=== PATIENT | male | born 1960 | race Caucasian/White ===

== ENCOUNTER 2018-02-15 13:42 | Inpatient (IN) | payer OTHER ==
[2018-02-15 16:04] VITALS: BMI 33.3
--- NOTE | 2018-02-15 19:42 | HP ---
CIWA Score - CIWA Score Nausea/Vomitin Muscle Tremors: 3 Anxiety: 3 Agitation: 3 Paroxysmal Sweats: 3 Orientation: 0-Oriented Tacttile Disturbances: 0-None Auditory Disturbances: 0-None Visual Disturbances: 0-None Headache: 0-None Present CIWA-Ar Total Score: 15 Admission ROS S - HPI Chief Complaint: "I need to stop drinking because it's too much" Allergies/Adverse Reactions: Allergies Allergy/AdvReac Type Severity Reaction Status Date / Time No Known Allergies Allergy Verified 02/15/18 18:34 History of Present Illness: Pt is a 57 y/o man with a 30 yr history of alcohol addiction presents here for alcohol detox. This is pt's first visit here but states he had detox once prior 3 yrs ago in [place]. Hx: DM, HTN, High cholesterol, gastritis, previous back surgery Psych hx: Anxiety, Depression Denies past nor present SI Exam Limitations: No Limitations - Ebola screening Have you traveled outside of the country in the last 21 days: No Have you had contact with anyone from an Ebola affected area: No Have you been sick,other than usual withdrawal symptoms: No Do you have a fever: No - Review of Systems Constitutional: Night Sweats, Changes in sleep EENT: reports: Recent change in vision (wears galsses), Tinnitus (sometimes) Respiratory: reports: No Symptoms reported GI: reports: Diarrhea, Nausea, Vomiting : reports: No Symptoms Reported Musculoskeletal: reports: Back Pain, Neck Pain Integumentary: reports: No Symptoms Reported Neuro: reports: Headache, Numbness, Paresthesia Endocrine: reports: No Symptoms Reported Hematology: reports: No Symptoms Reported Psychiatric: reports: Mood/Affect Appropiate, Orientated x3, Anxious Other Systems: Reviewed and Negative Patient History - Patient Medical History Hx Anemia: Yes Hx Asthma: No Hx Chronic Obstructive Pulmonary Disease (COPD): No Hx Cancer: No Hx Cardiac Disorders: No Hx Congestive Heart Failure: No Hx Hypertension: Yes (On meds - lisinopril) Hx Hypercholesterolemia: Yes (On meds) Hx Pacemaker: No HX Cerebrovascular Accident: No Hx Seizures: No Hx Diabetes: Yes (ON insulin, metformin, glypizide, januvia) Hx Gastrointestinal Disorders: Yes (Gastritis - on omeprazole) Hx Liver Disease: No Hx Genitourinary Disorders: No Hx Sexually Transmitted Disorders: No Hx Renal Disease (ESRD): No Hx Thyroid Disease: No Hx Human Immunodeficiency Virus (HIV): No (last tested 2 yrs ago, declines test.) Hx Hepatitis C: No Hx Depression: Yes (Not on meds) Hx Suicide Attempt: No Hx Bipolar Disorder: No Hx Schizophrenia: No - Patient Surgical History Past Surgical History: Yes Hx Neurologic Surgery: No Hx Cataract Extraction: No Hx Cardiac Surgery: No Hx Lung Surgery: No Hx Breast Surgery: No Hx Breast Biopsy: No Hx Abdominal Surgery: No Hx Appendectomy: No Hx Cholecystectomy: No Hx Genitourinary Surgery: No Hx Section: No Hx Orthopedic Surgery: Yes (SPINE SURGERY 2010) Hx Hysterectomy: No Anesthesia Reaction: No - PPD History Previous Implant?: No Documented Results: Negative w/o proof Implanted On Prior R Admission?: No PPD to be Administered?: No - Reproductive History Patient is a Female of Child Bearing Age (11 -55 yrs old): No - Smoking Cessation Smoking history: Never smoked Have you smoked in the past 12 months: No Initiated information on smoking cessation: Yes 'Breaking Loose' booklet given: 02/15/18 - Substance & Tx. History Hx Alcohol Use: Yes Hx Substance Use: Yes Substance Use Type: Alcohol Hx Substance Use Treatment: No - Substances Abused Alcohol Route: Oral Frequency: Daily Amount used: 1- 2 PINT VODKA + 8/16OZ BEER. Age of first use: 13 Date of Last Use: 02/15/18 Family Disease History - Family Disease History Family Disease History: Diabetes: Mother (), Heart Disease: Mother, Other: Father ( - liver cirrhosis) Admission Physical Exam S - Vital Signs Vital Signs: Vital Signs - 24 hr 02/15/18 16:02 Temperature 97.2 F L Pulse Rate 106 H Respiratory 18 Rate Blood Pressure 158/90 - Physical General Appearance: Yes: Mild Distress, Irritable, Anxious HEENTM: Yes: Within Normal Limits Respiratory: Yes: Within Normal Limits, Lungs Clear, No Respiratory Distress, No Accessory Muscle Use Neck: Yes: No masses,lesions,Nodules, Other (slight tenderness to back) Breast: Yes: Breast Exam Deferred Cardiology: Yes: Within Normal Limits Abdominal: Yes: Within Normal Limits, Non Tender, Soft Genitourinary: Yes: Within Normal Limits Back: Yes: Normal Inspection Musculoskeletal: Yes: full range of Motion, Gait Steady Extremities: Yes: Within Normal Limits, Normal Capillary Refill, Normal Inspection Neurological: Yes: Fully Oriented, Alert, Motor Strength 5/5, Normal Mood/Affect Integumentary: Yes: Within Normal Limits, Normal Color Lymphatic: Yes: Within Normal Limits - Diagnostic (1) Uncomplicated alcohol dependence Current Visit: Yes Status: Acute (2) HTN (hypertension) Current Visit: Yes Status: Chronic (3) Gastritis Current Visit: Yes Status: Chronic (4) DM type 2 (diabetes mellitus, type 2) Current Visit: Yes Status: Chronic (5) High cholesterol Current Visit: Yes Status: Chronic (6) Insomnia Current Visit: Yes Status: Chronic (7) Anxiety and depression Current Visit: Yes Status: Acute BHS Breath Alcohol Content Breath Alcohol Content: 0.039 Urine Drug Screen - Results Drug Screen Negative: Yes
[2018-02-15] MEDS ORDERED: chlordiazePOXIDE HCL 25 MG CAPSULE PO PRN (20:07)
[2018-02-15] MEDS ORDERED: guaiFENesin/D-METHORPHAN HB 10 ML UNIT-DOSE CUPS PO PRN (20:07)
[2018-02-15] MEDS ORDERED: MAG HYDROX/AL HYDROX/SIMETH 30 ML UNIT-DOSE CUP PO PRN (20:07)
[2018-02-15] MEDS ORDERED: MENTHOL/PHENOL 1 EACH UD MM PRN (20:07)
[2018-02-15] MEDS ORDERED: MAGNESIUM HYDROX 2400MG/30ML ORAL SUSPENSION 30 ML CUP PO PRN (20:07)
[2018-02-15] MEDS ORDERED: IBUPROFEN 400 MG TABLET (FP) PO PRN (20:07)
[2018-02-15] MEDS ORDERED: hydrOXYzine PAMOATE 50 MG CAPSULE (FP) PO PRN (20:07)
[2018-02-15] MEDS ORDERED: ACETAMINOPHEN 325 MG TABLET (FP) PO PRN (20:07)
[2018-02-15] MEDS ORDERED: MAGNESIUM CITRATE 300 ML BOTTLE PO PRN (20:07)
[2018-02-15] MEDS ORDERED: LOPERAMIDE HCL 2 MG CAPSULE PO PRN (20:07)
[2018-02-15] MEDS ORDERED: P-EPHED 60MG/TRIPROLIDI 2.5MG TABLET PO PRN (20:07)
[2018-02-15] MEDS: INSULIN (LEVEMIR) 100 UNITS/ML UNITS SQ SCH (21:34)
[2018-02-15] MEDS: ATORVASTATIN CA 40 MG TABLET (FP) PO SCH (21:35)
[2018-02-15] MEDS ORDERED: INSULIN (NOVOLOG) ASPART 100 UNITS/ML 10ML VIAL ONE (21:39)
[2018-02-15] MEDS: INSULIN SLIDING SCALE (NOVOLOG) 1 VIAL SQ SCH (21:41)
[2018-02-15] MEDS ORDERED: INSULIN SLIDING SCALE (NOVOLOG) 1 VIAL SQ SCH (22:00)
[2018-02-15] MEDS ORDERED: metFORMIN HCL 500 MG TABLET (FP) PO SCH (22:00)
[2018-02-15] MEDS ORDERED: INSULIN GLARGINE HUM REC ANLOG 45 UNIT SQ SCH (22:00)
[2018-02-15] MEDS ORDERED: MELATONIN 5 MG TABLETS PO PRN (22:00)
[2018-02-15] MEDS: THIAMINE HCL 100 MG TABLET (FP) PO SCH (23:17)
[2018-02-15] MEDS: chlordiazePOXIDE HCL 25 MG CAPSULE PO SCH (23:17)
[2018-02-16] MEDS: chlordiazePOXIDE HCL 25 MG CAPSULE PO SCH ×4 (05:22→22:29)
[2018-02-16] MEDS ORDERED: INSULIN (NOVOLOG) ASPART 100 UNITS/ML 10ML VIAL ONE ×3 (07:37→22:29)
[2018-02-16] MEDS: glipiZIDE 5 MG TABLET (FP) PO SCH ×2 (07:42→16:56)
[2018-02-16] MEDS: INSULIN SLIDING SCALE (NOVOLOG) 1 VIAL SQ SCH ×4 (07:42→22:29)
[2018-02-16] MEDS: metFORMIN HCL 500 MG TABLET (FP) PO SCH ×2 (07:42→16:56)
[2018-02-16] MEDS ORDERED: PATIENT'S OWN MEDICATION (NON-FORMULARY) (Omeprazole [Omeprazole] 20 MG) PO SCH (10:00)
[2018-02-16] MEDS: PRENATAL VITAMINS W/ FOLIC ACID TABLET (FP) PO SCH (10:21)
[2018-02-16] MEDS: ASPIRIN 81 MG CHEWABLE TABLETS PO SCH (10:21)
[2018-02-16] MEDS: PANTOPRAZOLE 20 MG TABLET (FP) PO SCH (10:22)
[2018-02-16] MEDS: LISINOPRIL 20 MG TABLET (FP) PO SCH (10:22)
[2018-02-16 10:42] LABS: HEMOGLOBIN 12.1 GM/dL (11.7-16.9); MCH 28.5 pg (25.7-33.7); MCHC 32.7 g/dl (32.0-35.9); MEAN CELL VOLUME 87.3 fl (80-96); MEAN PLT VOLUME 8.5 fl (7.5-11.1); PLATELET COUNT 264 K/MM3 (134-434); RBC 4.24 M/mm3 (4.00-5.60); RDW 14.5 % (11.9-15.9); WHITE BLOOD COUNT 7.4 K/mm3 (4.0-10.0)
[2018-02-16 10:43] LABS: URINE APPEARANCE CLEAR; URINE BILIRUBIN NEGATIVE (<2.0 mg/dL); URINE COLOR STRAW; URINE GLUCOSE (UA) 3+ (NEGATIVE); URINE KETONE NEGATIVE (NEGATIVE); URINE LEUK ESTERASE NEGATIVE (NEGATIVE); URINE NITRITE NEGATIVE (NEGATIVE); URINE PROTEIN NEGATIVE (NEGATIVE); URINE UROBILINOGEN NEGATIVE mg/dL (0.2-1.0)
--- NOTE | 2018-02-16 10:43 | CONSULT ---
[facility] Psychiatric Consult - Data Date of interview: 02/16/18 Admission source: [facility] Identifying data: Mr Khan is a 57 years old single male, unemployed with no source of income homeless seeking detox treatment for alcohol Substance Abuse History: Reports history of alcohol use. Refer to addiction counselor's summary for further information Medical History: Significant for hypertension dyslipidemia, type 2 diabetes mellitus, gastritis, anemia and history of neurosurgery of spine 2010. Psychiatric History: Reports since his spine surgery in 2010, he started feeling depressed and anxious. He initially saw a psychiatrist in [place] and he was prescribed Alprazolam and Valium. Recently on February 03, 2018, he completed a proram at [facility] after 20 months. There he saw a psychiatrist and was tried on different medications including Fluoxetine, Trazadone, Seroquel, Vistaril etc. Claims none of them worked except Alprazlam and Valium he was prescribed by the psychiatrist in [place]. Denies previous psychiatric hospitalization or suicidal attempt. At present, reports feeling depressed and sleeping poorly Physical/Sexual Abuse/Trauma History: Denies history of emotional, physical or sexual abuse as well as DV relationship. No service Additional Comment: Reports history of one previous arrest on charges of drinking in public years ago Mental Status Exam - Mental Status Exam Alert and Oriented to: Time, Place, Person Cognitive Function: Fair Patient Appearance: Well Groomed Mood: Depressed Affect: Appropriate Patient Behavior: Cooperative Speech Pattern: Clear Voice Loudness: Normal Thought Process: Intact, Goal Oriented Thought Disorder: Not Present Hallucinations: Denies Homicidal Ideation: Denies Insight/Judgement: Fair Sleep: Poorly Appetite: Good Muscle strength/Tone: Normal Gait/Station: Normal Psychiatric Findings - Problem List ([place] 1, 2,3) (1) Alcohol-induced mood disorder Current Visit: Yes Status: Acute (2) Alcohol-induced sleep disorder Current Visit: Yes Status: Acute (3) Uncomplicated alcohol dependence Current Visit: Yes Status: Acute (4) DM type 2 (diabetes mellitus, type 2) Current Visit: Yes Status: Chronic (5) Gastritis Current Visit: Yes Status: Chronic (6) HTN (hypertension) Current Visit: Yes Status: Chronic (7) High cholesterol Current Visit: Yes Status: Chronic - Initial Treatment Plan Initial Treatment Plan: 1) Start Ambien 10 mg po HS prn for insomnia. 2) Continue inpatient detoxification
[2018-02-16 10:54] LABS: EPI CELLS RARE /HPF (FEW); URINE MUCUS RARE
[2018-02-16 11:29] LABS: ALBUMIN 3.1 g/dl (3.4-5.0); ALK PHOS 187 U/L (45-117); ANION GAP 9 MMOL/L (8-16); BILIRUBIN,TOTAL 0.3 mg/dL (0.2-1); BLOOD UREA NITROGEN 8 mg/dL (7-18); CALCIUM 8.7 mg/dL (8.5-10.1); CHLORIDE 99 mmol/L (98-107); CO2 26 mmol/L (21-32); CREATININE 0.8 mg/dL (0.55-1.3); GLUCOSE,RANDOM 165 mg/dL (74-106); POTASSIUM 4.1 mmol/L (3.5-5.1); SGOT/AST 28 U/L (15-37); SGPT/ALT 42 U/L (13-61); SODIUM 134 mmol/L (136-145); TOT PROT 7.1 g/dl (6.4-8.2)
--- NOTE | 2018-02-16 13:12 | PN ---
S CIWA - CIWA Score Nausea/Vomitin-Mild Nausea/No Vomiting Muscle Tremors: 3 Anxiety: 3 Agitation: 3 Paroxysmal Sweats: 1-Minimal Palms Moist Orientation: 1-Uncertain about Date (to date) Tacttile Disturbances: 0-None Auditory Disturbances: 0-None Visual Disturbances: 0-None Headache: 0-None Present CIWA-Ar Total Score: 12 BHS Progress Note (SOAP) Subjective: sweat tremor restlessness low energy Objective: 02/16/18 13:13 Vital Signs Temperature 97.8 F 02/16/18 10:32 Pulse Rate 100 H 02/16/18 10:32 Respiratory Rate 20 02/16/18 10:32 Blood Pressure 132/79 02/16/18 10:32 O2 Sat by Pulse Oximetry (%) Laboratory Last Values WBC 7.4 K/mm3 (4.0-10.0) 02/16/18 07:40 RBC 4.24 M/mm3 (4.00-5.60) 02/16/18 07:40 Hgb 12.1 GM/dL (11.7-16.9) 02/16/18 07:40 Hct 37.0 % (35.4-49) 02/16/18 07:40 MCV 87.3 fl (80-96) 02/16/18 07:40 MCH 28.5 pg (25.7-33.7) 02/16/18 07:40 MCHC 32.7 g/dl (32.0-35.9) 02/16/18 07:40 RDW 14.5 % (11.9-15.9) 02/16/18 07:40 Plt Count 264 K/MM3 (134-434) 02/16/18 07:40 MPV 8.5 fl (7.5-11.1) 02/16/18 07:40 Sodium 134 mmol/L (136-145) L 02/16/18 07:40 Potassium 4.1 mmol/L (3.5-5.1) 02/16/18 07:40 Chloride 99 mmol/L (98-107) 02/16/18 07:40 Carbon Dioxide 26 mmol/L (21-32) 02/16/18 07:40 Anion Gap 9 MMOL/L (8-16) 02/16/18 07:40 BUN 8 mg/dL (7-18) 02/16/18 07:40 Creatinine 0.8 mg/dL (0.55-1.3) 02/16/18 07:40 Creat Clearance w eGFR > 60 (>60) 02/16/18 07:40 POC Glucometer 226 UNITS (80-120) 02/16/18 11:26 Random Glucose 165 mg/dL (74-106) H 02/16/18 07:40 Calcium 8.7 mg/dL (8.5-10.1) 02/16/18 07:40 Total Bilirubin 0.3 mg/dL (0.2-1) 02/16/18 07:40 AST 28 U/L (15-37) 02/16/18 07:40 ALT 42 U/L (13-61) 02/16/18 07:40 Alkaline Phosphatase 187 U/L (45-117) H 02/16/18 07:40 Total Protein 7.1 g/dl (6.4-8.2) 02/16/18 07:40 Albumin 3.1 g/dl (3.4-5.0) L 02/16/18 07:40 Urine Color Straw 02/16/18 08:40 Urine Appearance Clear 02/16/18 08:40 Urine pH 6.0 (5.0-8.0) 02/16/18 08:40 Ur Specific [place] 1.012 (1.010-1.035) 02/16/18 08:40 Urine Protein Negative (NEGATIVE) 02/16/18 08:40 Urine Glucose (UA) 3+ (NEGATIVE) H 02/16/18 08:40 Urine Ketones Negative (NEGATIVE) 02/16/18 08:40 Urine Blood 1+ (NEGATIVE) H 02/16/18 08:40 Urine Nitrite Negative (NEGATIVE) 02/16/18 08:40 Urine Bilirubin Negative (<2.0 mg/dL) 02/16/18 08:40 Urine Urobilinogen Negative mg/dL (0.2-1.0) 02/16/18 08:40 Ur Leukocyte Esterase Negative (NEGATIVE) 02/16/18 08:40 Urine WBC (Auto) 1 /hpf (3-5) 02/16/18 08:40 Urine RBC (Auto) 1 /hpf (0-3) 02/16/18 08:40 Ur Epithelial Cells Rare /HPF (FEW) 02/16/18 08:40 Urine Mucus Rare 02/16/18 08:40 RPR Titer Nonreactive (NONREACTIVE) 02/16/18 07:40 lab noted Assessment: 02/16/18 13:14 withdrawal sx Plan: continue detox
[2018-02-16] MEDS: ATORVASTATIN CA 40 MG TABLET (FP) PO SCH (22:29)
[2018-02-16] MEDS: INSULIN (LEVEMIR) 100 UNITS/ML UNITS SQ SCH (22:29)
[2018-02-16] MEDS: ZOLPIDEM TARTRATE 10 MG TABLET (PARK CARE ONLY) PO PRN (22:33)
[2018-02-16] MEDS: THIAMINE HCL 100 MG TABLET (FP) PO SCH (23:25)
[2018-02-17] MEDS: glipiZIDE 5 MG TABLET (FP) PO SCH ×2 (06:24→17:30)
[2018-02-17] MEDS: chlordiazePOXIDE HCL 25 MG CAPSULE PO SCH ×3 (06:24→17:30)
[2018-02-17] MEDS: metFORMIN HCL 500 MG TABLET (FP) PO SCH ×2 (06:24→17:30)
[2018-02-17] MEDS ORDERED: INSULIN (NOVOLOG) ASPART 100 UNITS/ML 10ML VIAL ONE ×4 (06:30→22:22)
[2018-02-17] MEDS: INSULIN SLIDING SCALE (NOVOLOG) 1 VIAL SQ SCH ×5 (08:19→22:24)
[2018-02-17] MEDS: LISINOPRIL 20 MG TABLET (FP) PO SCH (10:45)
[2018-02-17] MEDS: ASPIRIN 81 MG CHEWABLE TABLETS PO SCH (10:45)
[2018-02-17] MEDS: PRENATAL VITAMINS W/ FOLIC ACID TABLET (FP) PO SCH (10:45)
[2018-02-17] MEDS: PANTOPRAZOLE 20 MG TABLET (FP) PO SCH (10:45)
--- NOTE | 2018-02-17 11:12 | EKG ---
Test Reason : Blood Pressure : / mmHG Vent. Rate : 104 BPM Atrial Rate : 104 BPM P-R Int : 142 ms QRS Dur : 080 ms QT Int : 352 ms P-R-T Axes : 052 042 041 degrees QTc Int : 462 ms SINUS TACHYCARDIA OTHERWISE NORMAL ECG NO PREVIOUS ECGS AVAILABLE Confirmed by JEY RIDDLE MD ([id number]) on 02/17/2018 11:11:45 AM Referred By: Confirmed By:JEY RIDDLE MD
--- NOTE | 2018-02-17 16:39 | PN ---
[facility] CIWA - CIWA Score Nausea/Vomitin-No Nausea/No Vomiting Muscle Tremors: 3 Anxiety: 1-Mildly Anxious Agitation: 3 Paroxysmal Sweats: 1-Minimal Palms Moist Orientation: 0-Oriented Tacttile Disturbances: 1-Very Mild Itch/Numbness Auditory Disturbances: 1-Very Mild Visual Disturbances: 0-None Headache: 0-None Present CIWA-Ar Total Score: 10 BHS Progress Note (SOAP) Subjective: sweat tremor restlessness anxiety Objective: 02/17/18 16:41 Vital Signs Temperature 96.5 F L 02/17/18 13:19 Pulse Rate 118 H 02/17/18 13:19 Respiratory Rate 20 02/17/18 13:19 Blood Pressure 138/82 02/17/18 13:19 O2 Sat by Pulse Oximetry (%) Laboratory Last Values WBC 7.4 K/mm3 (4.0-10.0) 02/16/18 07:40 RBC 4.24 M/mm3 (4.00-5.60) 02/16/18 07:40 Hgb 12.1 GM/dL (11.7-16.9) 02/16/18 07:40 Hct 37.0 % (35.4-49) 02/16/18 07:40 MCV 87.3 fl (80-96) 02/16/18 07:40 MCH 28.5 pg (25.7-33.7) 02/16/18 07:40 MCHC 32.7 g/dl (32.0-35.9) 02/16/18 07:40 RDW 14.5 % (11.9-15.9) 02/16/18 07:40 Plt Count 264 K/MM3 (134-434) 02/16/18 07:40 MPV 8.5 fl (7.5-11.1) 02/16/18 07:40 Sodium 134 mmol/L (136-145) L 02/16/18 07:40 Potassium 4.1 mmol/L (3.5-5.1) 02/16/18 07:40 Chloride 99 mmol/L (98-107) 02/16/18 07:40 Carbon Dioxide 26 mmol/L (21-32) 02/16/18 07:40 Anion Gap 9 MMOL/L (8-16) 02/16/18 07:40 BUN 8 mg/dL (7-18) 02/16/18 07:40 Creatinine 0.8 mg/dL (0.55-1.3) 02/16/18 07:40 Creat Clearance w eGFR > 60 (>60) 02/16/18 07:40 POC Glucometer 345 UNITS (80-120) 02/17/18 10:48 Random Glucose 165 mg/dL (74-106) H 02/16/18 07:40 Calcium 8.7 mg/dL (8.5-10.1) 02/16/18 07:40 Total Bilirubin 0.3 mg/dL (0.2-1) 02/16/18 07:40 AST 28 U/L (15-37) 02/16/18 07:40 ALT 42 U/L (13-61) 02/16/18 07:40 Alkaline Phosphatase 187 U/L (45-117) H 02/16/18 07:40 Total Protein 7.1 g/dl (6.4-8.2) 02/16/18 07:40 Albumin 3.1 g/dl (3.4-5.0) L 02/16/18 07:40 Urine Color Straw 02/16/18 08:40 Urine Appearance Clear 02/16/18 08:40 Urine pH 6.0 (5.0-8.0) 02/16/18 08:40 Ur Specific [place] 1.012 (1.010-1.035) 02/16/18 08:40 Urine Protein Negative (NEGATIVE) 02/16/18 08:40 Urine Glucose (UA) 3+ (NEGATIVE) H 02/16/18 08:40 Urine Ketones Negative (NEGATIVE) 02/16/18 08:40 Urine Blood 1+ (NEGATIVE) H 02/16/18 08:40 Urine Nitrite Negative (NEGATIVE) 02/16/18 08:40 Urine Bilirubin Negative (<2.0 mg/dL) 02/16/18 08:40 Urine Urobilinogen Negative mg/dL (0.2-1.0) 02/16/18 08:40 Ur Leukocyte Esterase Negative (NEGATIVE) 02/16/18 08:40 Urine WBC (Auto) 1 /hpf (3-5) 02/16/18 08:40 Urine RBC (Auto) 1 /hpf (0-3) 02/16/18 08:40 Ur Epithelial Cells Rare /HPF (FEW) 02/16/18 08:40 Urine Mucus Rare 02/16/18 08:40 RPR Titer Nonreactive (NONREACTIVE) 02/16/18 07:40 lab noted Assessment: 02/17/18 16:44 withdrawal sx Plan: cotinue detox
[2018-02-17] MEDS: THIAMINE HCL 100 MG TABLET (FP) PO SCH (22:19)
[2018-02-17] MEDS: chlordiazePOXIDE 5 MG CAPSULE PO SCH (22:23)
[2018-02-17] MEDS: INSULIN (LEVEMIR) 100 UNITS/ML UNITS SQ SCH (22:23)
[2018-02-17] MEDS: ATORVASTATIN CA 40 MG TABLET (FP) PO SCH (22:23)
[2018-02-17] MEDS: ZOLPIDEM TARTRATE 10 MG TABLET (PARK CARE ONLY) PO PRN (22:32)
[2018-02-18] MEDS: chlordiazePOXIDE 5 MG CAPSULE PO SCH ×3 (06:40→17:43)
[2018-02-18] MEDS: glipiZIDE 5 MG TABLET (FP) PO SCH ×2 (06:41→17:43)
[2018-02-18] MEDS: metFORMIN HCL 500 MG TABLET (FP) PO SCH ×2 (06:41→17:42)
[2018-02-18] MEDS: INSULIN SLIDING SCALE (NOVOLOG) 1 VIAL SQ SCH ×4 (06:45→23:40)
[2018-02-18] MEDS ORDERED: INSULIN (NOVOLOG) ASPART 100 UNITS/ML 10ML VIAL ONE ×4 (06:45→21:14)
--- NOTE | 2018-02-18 09:30 | PN ---
BHS Progress Note (SOAP) Subjective: sweats shakes agitation interrupted sleep Objective: 02/18/18 09:30 Vital Signs Temperature 97.5 F L 02/18/18 07:06 Pulse Rate 57 L 02/18/18 07:06 Respiratory Rate 18 02/18/18 07:06 Blood Pressure 102/57 L 02/18/18 07:06 O2 Sat by Pulse Oximetry (%) Laboratory Tests 02/15/18 02/16/18 02/16/18 21:23 05:21 07:40 WBC 7.4 RBC 4.24 Hgb 12.1 Hct 37.0 MCV 87.3 MCH 28.5 MCHC 32.7 RDW 14.5 Plt Count 264 MPV 8.5 Sodium Potassium Chloride Carbon Dioxide Anion Gap BUN Creatinine Creat Clearance w eGFR POC Glucometer 260 231 Random Glucose Calcium Total Bilirubin AST ALT Alkaline Phosphatase Total Protein Albumin Urine Color Urine Appearance Urine pH Ur Specific [place] Urine Protein Urine Glucose (UA) Urine Ketones Urine Blood Urine Nitrite Urine Bilirubin Urine Urobilinogen Ur Leukocyte Esterase Urine WBC (Auto) Urine RBC (Auto) Ur Epithelial Cells Urine Mucus RPR Titer 02/16/18 02/16/18 02/16/18 07:40 07:40 08:40 WBC RBC Hgb Hct MCV MCH MCHC RDW Plt Count MPV Sodium 134 L Potassium 4.1 Chloride 99 Carbon Dioxide 26 Anion Gap 9 BUN 8 Creatinine 0.8 Creat Clearance w eGFR > 60 POC Glucometer Random Glucose 165 H Calcium 8.7 Total Bilirubin 0.3 AST 28 ALT 42 Alkaline Phosphatase 187 H Total Protein 7.1 Albumin 3.1 L Urine Color Straw Urine Appearance Clear Urine pH 6.0 Ur Specific [place] 1.012 Urine Protein Negative Urine Glucose (UA) 3+ H Urine Ketones Negative Urine Blood 1+ H Urine Nitrite Negative Urine Bilirubin Negative Urine Urobilinogen Negative Ur Leukocyte Esterase Negative Urine WBC (Auto) 1 Urine RBC (Auto) 1 Ur Epithelial Cells Rare Urine Mucus Rare RPR Titer Nonreactive 02/16/18 02/16/18 02/16/18 11:26 16:33 21:50 WBC RBC Hgb Hct MCV MCH MCHC RDW Plt Count MPV Sodium Potassium Chloride Carbon Dioxide Anion Gap BUN Creatinine Creat Clearance w eGFR POC Glucometer 226 362 291 Random Glucose Calcium Total Bilirubin AST ALT Alkaline Phosphatase Total Protein Albumin Urine Color Urine Appearance Urine pH Ur Specific [place] Urine Protein Urine Glucose (UA) Urine Ketones Urine Blood Urine Nitrite Urine Bilirubin Urine Urobilinogen Ur Leukocyte Esterase Urine WBC (Auto) Urine RBC (Auto) Ur Epithelial Cells Urine Mucus RPR Titer 02/17/18 02/17/18 02/17/18 06:22 10:48 16:42 WBC RBC Hgb Hct MCV MCH MCHC RDW Plt Count MPV Sodium Potassium Chloride Carbon Dioxide Anion Gap BUN Creatinine Creat Clearance w eGFR POC Glucometer 346 345 347 Random Glucose Calcium Total Bilirubin AST ALT Alkaline Phosphatase Total Protein Albumin Urine Color Urine Appearance Urine pH Ur Specific [place] Urine Protein Urine Glucose (UA) Urine Ketones Urine Blood Urine Nitrite Urine Bilirubin Urine Urobilinogen Ur Leukocyte Esterase Urine WBC (Auto) Urine RBC (Auto) Ur Epithelial Cells Urine Mucus RPR Titer 02/17/18 02/18/18 22:15 06:39 WBC RBC Hgb Hct MCV MCH MCHC RDW Plt Count MPV Sodium Potassium Chloride Carbon Dioxide Anion Gap BUN Creatinine Creat Clearance w eGFR POC Glucometer 337 280 Random Glucose Calcium Total Bilirubin AST ALT Alkaline Phosphatase Total Protein Albumin Urine Color Urine Appearance Urine pH Ur Specific [place] Urine Protein Urine Glucose (UA) Urine Ketones Urine Blood Urine Nitrite Urine Bilirubin Urine Urobilinogen Ur Leukocyte Esterase Urine WBC (Auto) Urine RBC (Auto) Ur Epithelial Cells Urine Mucus RPR Titer aaox3 ambulating no acute distress Assessment: 02/18/18 09:30 withdrawal sx Plan: continue detox increase fluids
[2018-02-18] MEDS: ASPIRIN 81 MG CHEWABLE TABLETS PO SCH (10:35)
[2018-02-18] MEDS: PRENATAL VITAMINS W/ FOLIC ACID TABLET (FP) PO SCH (10:35)
[2018-02-18] MEDS: LISINOPRIL 20 MG TABLET (FP) PO SCH (10:35)
[2018-02-18] MEDS: PANTOPRAZOLE 20 MG TABLET (FP) PO SCH (10:35)
[2018-02-18] MEDS: ATORVASTATIN CA 40 MG TABLET (FP) PO SCH (22:05)
[2018-02-18] MEDS: chlordiazePOXIDE HCL 10 MG CAPSULE PO SCH (22:05)
[2018-02-18] MEDS: THIAMINE HCL 100 MG TABLET (FP) PO SCH (22:05)
[2018-02-18] MEDS: ZOLPIDEM TARTRATE 10 MG TABLET (PARK CARE ONLY) PO PRN (22:07)
[2018-02-18] MEDS: INSULIN (LEVEMIR) 100 UNITS/ML UNITS SQ SCH (23:40)
[2018-02-19] MEDS: chlordiazePOXIDE HCL 10 MG CAPSULE PO SCH ×2 (05:40→09:59)
[2018-02-19] MEDS: glipiZIDE 5 MG TABLET (FP) PO SCH (06:04)
[2018-02-19] MEDS: metFORMIN HCL 500 MG TABLET (FP) PO SCH (06:05)
[2018-02-19] MEDS ORDERED: INSULIN (NOVOLOG) ASPART 100 UNITS/ML 10ML VIAL ONE (08:13)
[2018-02-19] MEDS: INSULIN SLIDING SCALE (NOVOLOG) 1 VIAL SQ SCH (08:18)
--- NOTE | 2018-02-19 09:00 | DS ---
[facility] Detox Discharge Summary Admission Date: 02/15/18 Discharge Date: 02/19/18 - History Present History: Alcohol Dependence - Physical Exam Results Vital Signs: Vital Signs Temperature 97.5 F L 02/19/18 07:18 Pulse Rate 102 H 02/19/18 07:18 Respiratory Rate 20 02/19/18 07:18 Blood Pressure 118/62 02/19/18 07:18 O2 Sat by Pulse Oximetry (%) - Treatment Hospital Course: Detox Protocol Followed, Detoxed Safely, Responded well, Discharged Condition Good, Rehab Referral Accepted - Medication Discharge Medications: Ambulatory Orders Aspirin [Children's Aspirin] 81 mg PO DAILY 02/15/18 Atorvastatin Ca [Lipitor] 40 mg PO HS 02/15/18 Insulin Aspart [Novolog] 100 unit SQ ACHS 02/15/18 Insulin Glargine,Hum.rec.anlog [Lantus (nf)] 45 units SQ HS 02/15/18 Lisinopril 20 mg PO DAILY 02/15/18 Omeprazole 20 mg PO DAILY 02/15/18 metFORMIN HCL [Metformin HCl] 1,000 mg PO BID 02/15/18 - Diagnosis (1) Alcohol-induced mood disorder Current Visit: Yes Status: Acute (2) Alcohol-induced sleep disorder Current Visit: Yes Status: Acute (3) Anxiety and depression Current Visit: Yes Status: Acute (4) Uncomplicated alcohol dependence Current Visit: Yes Status: Chronic (5) DM type 2 (diabetes mellitus, type 2) Current Visit: Yes Status: Chronic (6) Gastritis Current Visit: Yes Status: Chronic (7) HTN (hypertension) Current Visit: Yes Status: Chronic Qualifiers: Hypertension type: essential hypertension Qualified Code(s): I10 - Essential (primary) hypertension (8) High cholesterol Current Visit: Yes Status: Chronic (9) Insomnia Current Visit: Yes Status: Chronic - AMA Did Patient Leave Against Medical Advice: No
[2018-02-19] MEDS: PANTOPRAZOLE 20 MG TABLET (FP) PO SCH (09:46)
[2018-02-19] MEDS: ASPIRIN 81 MG CHEWABLE TABLETS PO SCH (09:46)
[2018-02-19] MEDS: LISINOPRIL 20 MG TABLET (FP) PO SCH (09:46)
[2018-02-19] MEDS: PRENATAL VITAMINS W/ FOLIC ACID TABLET (FP) PO SCH (09:47)
[2018-02-19 09:58] VITALS: BP 124/75; PULSE 100; TEMP 96.6
== END 2018-02-19 10:34 | disposition home or self-care (01) | DRG 775 ==
LOC: YASAS 13:42 → Y6N 17:03
PROC: HZ2ZZZZ Detoxification Services for Substance Abuse Treatment (ICD-10-PCS; principal; 2018-02-15)
DX: F10.230 Alcohol dependence with withdrawal, uncomplicated (principal); F10.24 Alcohol dependence with alcohol-induced mood disorder; F10.282 Alcohol dependence with alcohol-induced sleep disorder; F41.8 Other specified anxiety disorders; I10 Essential (primary) hypertension; E11.9 Type 2 diabetes mellitus without complications; E78.5 Hyperlipidemia, unspecified; G47.00 Insomnia, unspecified; K29.70 Gastritis, unspecified, without bleeding; Z79.4 Long term (current) use of insulin; Z79.82 Long term (current) use of aspirin
CPT/HCPCS: 36415; 71046-TC-FY; 80053; 81003; 81015; 82962; 85027; 86593; 93005; 93010

== ENCOUNTER 2019-01-17 09:33 | Inpatient (IN) | payer OTHER ==
[2019-01-17 11:07] VITALS: BMI 30.9
--- NOTE | 2019-01-17 13:11 | HP ---
CIWA Score Nausea/Vomitin Muscle Tremors: 4-Moderate,w/Arms Extend Anxiety: 4-Mod. Anxious/Guarded Agitation: 1-Slight > Activity Paroxysmal Sweats: No Perspiration Orientation: 1-Uncertain about Date Tacttile Disturbances: 1-Very Mild Itch/Numbness Auditory Disturbances: 1-Very Mild Visual Disturbances: 1-Very Mild Sensitivity Headache: 2-Mild CIWA-Ar Total Score: 17 - Admission Criteria OASAS Guidelines: Admission for Medically Managed Detox: Requires at least one of the followin. CIWA greater than 12 2. Seizures within the past 24 hours 3. Delirium tremens within the past 24 hours 4. Hallucinations within the past 24 hours 5. Acute intervention needed for co occurring medical disorder 6. Acute intervention needed for co occurring psychiatric disorder 7. Severe withdrawal that cannot be handled at a lower level of care (continued vomiting, continued diarrhea, abnormal vital signs) requiring intravenous medication and/or fluids 8. Patient presents the following: CIWA greater than 12 Admission Criteria Met: Admission criteria met Admission ROS S - HPI Chief Complaint: Everyday I feel so bad, too much alcohol, sometimes I drink the pharmacy alcohol - it's too heavy, too much pills, I can't do it Allergies/Adverse Reactions: Allergies Allergy/AdvReac Type Severity Reaction Status Date / Time No Known Allergies Allergy Verified 01/17/19 10:51 History of Present Illness: 58 yo gentleman here for detox from alcohol - also using benzos. Previously was here for detox February 2018 but relapsed shortly after leaving - did not f/u with outpatient rehab - he wishes custodial residential treatment after this detox - states his problem is 'too heavy' for oupatient as he cannot stay away from the alcohol and drugs. History of black outs but no seizures. He was in a [facility]MTP at [place] but left it about three months ago. States he 'lives in the street'. All medications reviewed and confirmed by myself from contact with [facility] as patient was unsure of some of the doses of his medication. Exam Limitations: Clinical Condition - Ebola screening Have you traveled outside of the country in the last 21 days: No (N) Have you had contact with anyone from an Ebola affected area: No Do you have a fever: No - Review of Systems Constitutional: Loss of Appetite, Malaise, Changes in sleep, Weakness EENT: reports: Blurred Vision Respiratory: reports: No Symptoms reported Cardiac: reports: No Symptoms Reported GI: reports: Nausea, Poor Appetite, Indigestion : reports: Frequency Musculoskeletal: reports: No Symptoms Reported Integumentary: reports: Dryness Neuro: reports: Headache, Numbness, Tremors, Weakness Endocrine: reports: No Symptoms Reported Hematology: reports: No Symptoms Reported Psychiatric: reports: Judgement Intact, Mood/Affect Appropiate, Anxious Other Systems: Reviewed and Negative Patient History - Patient Medical History Hx Anemia: No Hx Asthma: No Hx Chronic Obstructive Pulmonary Disease (COPD): No Hx Cancer: No Hx Cardiac Disorders: No Hx Congestive Heart Failure: No Hx Hypertension: Yes (On meds - lisinopril) Hx Hypercholesterolemia: Yes (On meds) Hx Pacemaker: No HX Cerebrovascular Accident: No Hx Seizures: No Hx Diabetes: Yes (ON insulin, with neuropathy) Hx Gastrointestinal Disorders: Yes (GERD- on omeprazole) Hx Liver Disease: No Hx Genitourinary Disorders: No Hx Sexually Transmitted Disorders: No Hx Renal Disease (ESRD): No Hx Thyroid Disease: No Hx Human Immunodeficiency Virus (HIV): No Hx Hepatitis C: No Hx Depression: Yes (with anxiety) Hx Suicide Attempt: Yes (when young tried to cut throat ) Hx Bipolar Disorder: Yes (history of meds and psych) Hx Schizophrenia: No - Patient Surgical History Past Surgical History: Yes Hx Neurologic Surgery: No Hx Cataract Extraction: No Hx Cardiac Surgery: No Hx Lung Surgery: No Hx Breast Surgery: No Hx Breast Biopsy: No Hx Abdominal Surgery: No Hx Appendectomy: No Hx Cholecystectomy: No Hx Genitourinary Surgery: No Hx Section: No Hx Orthopedic Surgery: Yes (SPINE SURGERY 2010 - laser, screws) Hx Hysterectomy: No Anesthesia Reaction: No - PPD History Previous Implant?: Yes Documented Results: Negative w/proof Implanted On Prior R Admission?: Yes Date: 02/17/18 PPD to be Administered?: No - Reproductive History Patient is a Female of Child Bearing Age (11 -55 yrs old): No - Smoking Cessation Smoking history: Never smoked Have you smoked in the past 12 months: No Initiated information on smoking cessation: No - Substance & Tx. History Hx Alcohol Use: Yes Hx Substance Use: Yes Substance Use Type: Alcohol, Marijuana, Tranquilizers Hx Substance Use Treatment: Yes (detox, rehab, MMTP ) - Substances abused Alcohol Substance route: Oral Frequency: Daily Amount used: 2-3 pints Vodka Age of first use: 13 Date of last use: 01/17/19 Marijuana/Hashish Substance route: Smoking Frequency: 3-6 times per week Amount used: 1-2 joints Age of first use: 13 Date of last use: 01/16/19 Alprazolam (Xanax) Substance route: Oral Frequency: 3-6 times per week Amount used: 1-2 4mg bars Age of first use: 48 Date of last use: 01/16/19 Family Disease History - Family Disease History Family Disease History: Diabetes: Mother (), Brother (one ), Sister ( two - ), Heart Disease: Mother, Sister, Other: Father ( - liver cirrhosis - etoh), Brother, Sister, Son (one - estranged - in [place]) Admission Physical Exam [facility] - Vital Signs Vital Signs: Vital Signs - 24 hr 01/17/19 10:57 Temperature 97.2 F L Pulse Rate 107 H Respiratory 17 Rate Blood Pressure 153/86 - Physical General Appearance: Yes: Nourished, Appropriately Dressed, Moderate Distress, Tremorous, Anxious HEENTM: Yes: EOMI, Hearing grossly Normal, Normocephalic, Normal Voice, Pharynx Normal Respiratory: Yes: Normal Breath Sounds, No Respiratory Distress Neck: Yes: No masses,lesions,Nodules Breast: Yes: Breast Exam Deferred Cardiology: Yes: Regular Rhythm, Tachycardia Abdominal: Yes: Soft Genitourinary: Yes: Frequency, Nocturia Back: Yes: Decreased Range of Motion, Surgical Scar (parallel scars on back - states surgery done in [place] with screws and laser) Musculoskeletal: Yes: full range of Motion, Gait Steady Extremities: Yes: Normal Inspection, Normal Range of Motion, Tremors Neurological: Yes: Fully Oriented, Alert, Normal Mood/Affect, Normal Response, Numbness Integumentary: Yes: Normal Color, Warm Lymphatic: Yes: Within Normal Limits - Diagnostic (1) Alcohol dependence with uncomplicated withdrawal Current Visit: Yes Status: Chronic (2) Sedative, hypnotic or anxiolytic abuse, uncomplicated Current Visit: Yes Status: Chronic (3) Cannabis dependence Current Visit: Yes Status: Chronic (4) Anxiety and depression Current Visit: Yes Status: Chronic (5) Gastritis Current Visit: Yes Status: Chronic Qualifiers: Gastritis type: alcoholic Chronicity: chronic Gastritis bleeding: without bleeding Qualified Code(s): K29.20 - Alcoholic gastritis without bleeding (6) HTN (hypertension) Current Visit: Yes Status: Chronic Qualifiers: Hypertension type: essential hypertension Qualified Code(s): I10 - Essential (primary) hypertension (7) High cholesterol Current Visit: Yes Status: Chronic (8) Insulin dependent diabetes mellitus Current Visit: Yes Status: Chronic (9) Diabetic neuropathy Current Visit: Yes Status: Chronic Qualifiers: Diabetes mellitus type: type 2 Diabetes mellitus complication detail: diabetic polyneuropathy Qualified Code(s): E11.42 - Type 2 diabetes mellitus with diabetic polyneuropathy Cleared for Admission S - Detox or Rehab [facility] Level of Care: Medically Managed Detox Regimen/Protocol: Librium Breathalyzer - Breathalyzer Breathalyzer: 0.015 Urine Drug Screen - Test Device Lot number: [id number] Expiration date: 10/10/20 - Control Is test valid?: Yes - Results Drug screen NEGATIVE: No Urine drug screen results: THC-Marijuana, BZO-Benzodiazepines Inpatient Rehab Admission - Rehab Decision to Admit Inpatient rehab admission?: No
[2019-01-17] MEDS ORDERED: MAGNESIUM CITRATE 300 ML BOTTLE PO PRN (13:42)
[2019-01-17] MEDS ORDERED: MAGNESIUM HYDROX 2400MG/30ML ORAL SUSPENSION 30 ML CUP PO PRN (13:42)
[2019-01-17] MEDS ORDERED: chlordiazePOXIDE HCL 25 MG CAPSULE PO PRN (13:42)
[2019-01-17] MEDS ORDERED: BISMUTH SUBSALICYLATE 524 MG/30 ML UD PO PRN (13:42)
[2019-01-17] MEDS ORDERED: ACETAMINOPHEN 325 MG TABLET (FP) PO PRN ×2 (13:42)
[2019-01-17] MEDS ORDERED: METHOCARBAMOL 500 MG TABLET PO PRN (13:42)
[2019-01-17] MEDS ORDERED: hydrOXYzine PAMOATE 25 MG CAPSULE (FP) PO PRN (13:42)
[2019-01-17] MEDS ORDERED: IBUPROFEN 400 MG TABLET (FP) PO PRN (13:42)
[2019-01-17] MEDS ORDERED: MELATONIN 5 MG TABLETS PO PRN (13:42)
[2019-01-17] MEDS ORDERED: PATIENT'S OWN MEDICATION (NON-FORMULARY) (Metformin Hcl [Glucophage] 1,000 MG) PO SCH (13:45)
[2019-01-17] MEDS ORDERED: PATIENT'S OWN MEDICATION (NON-FORMULARY) (Gabapentin [Neurontin] 600 MG) PO SCH (14:00)
[2019-01-17] MEDS ORDERED: chlordiazePOXIDE HCL 25 MG CAPSULE PO ONE (15:00)
[2019-01-17] MEDS: chlordiazePOXIDE HCL 25 MG CAPSULE PO SCH ×2 (17:31→22:25)
[2019-01-17] MEDS: INSULIN SLIDING SCALE (NOVOLOG) 1 VIAL SQ SCH ×2 (17:32→22:26)
[2019-01-17] MEDS: metFORMIN HCL 500 MG TABLET (FP) PO SCH (17:32)
[2019-01-17] MEDS: PANTOPRAZOLE 40 MG TABLET (FP) PO SCH (17:32)
[2019-01-17] MEDS ORDERED: TRAVOPROST OU SCH (22:00)
[2019-01-17] MEDS: ATORVASTATIN CA 40 MG TABLET (FP) PO SCH (22:25)
[2019-01-17] MEDS: THIAMINE HCL 100 MG TABLET (FP) PO SCH (22:25)
[2019-01-17] MEDS: traZODone HCL 100 MG TABLET (FP) PO PRN (22:25)
[2019-01-17] MEDS: GABAPENTIN 300 MG CAPSULE (FP) PO SCH (22:25)
[2019-01-17] MEDS: LATANOPROST 0.005% OPHTH SOLN 2.5ML BOTTLE OU SCH (22:25)
[2019-01-18] MEDS: GEMFIBROZIL 600 MG TABLET (FP) PO SCH ×3 (00:08→23:34)
[2019-01-18] MEDS: chlordiazePOXIDE HCL 25 MG CAPSULE PO SCH ×4 (05:24→22:57)
[2019-01-18] MEDS: GABAPENTIN 300 MG CAPSULE (FP) PO SCH ×3 (06:24→22:57)
[2019-01-18] MEDS: metFORMIN HCL 500 MG TABLET (FP) PO SCH ×2 (06:50→17:12)
[2019-01-18] MEDS: glipiZIDE 5 MG TABLET (FP) PO SCH (07:55)
[2019-01-18] MEDS: INSULIN SLIDING SCALE (NOVOLOG) 1 VIAL SQ SCH ×4 (07:55→22:57)
--- NOTE | 2019-01-18 08:56 | CONSULT ---
[facility] Psychiatric Consult - Data Date of interview: 01/18/19 Admission source: Self-referred Identifying data: Mr Khan is a 58 years old single male, father of a 19 years old son, unemployed with no source of oncome, homeless seeking detox treatment for alcohol, benzodiazepine and cannabis Substance Abuse History: Reports history of alcohol use. Refer to addiction counselor's summary for further information Medical History: Significant for hypertension dyslipidemia, type 2 diabetes mellitus, gastritis, anemia and history of neurosurgery of spine 2010. Psychiatric History: Patient is known to teletypewriter operator from a previous admision to this facility in February 2018. He is a poor historian. Reported that since his spine surgery in 2010, he started feeling depressed and anxious. He initially saw a psychiatrist in [place] and he was prescribed Alprazolam and Valium. In February 03, 2018, while a proram at [facility] he saw a psychiatrist and was tried on different medications including Fluoxetine, Trazadone, Seroquel, Vistaril etc. Claimed none of them worked except Alprazlam and Valium he was prescribed by the psychiatrist in [place]. When seen by teletypewriter operator on 02/16/18, he was prescibed Ambien 10 mg/hs prn for insomnia. Denies current OPD care or taking medication. Denies previous psychiatric hospitalization or suicidal attempt. At present, reports feeling depressed, anxious and sleeping better with Melatonin which was given to him last night Physical/Sexual Abuse/Trauma History: Denies history of emotional, physical or sexual abuse as well as DV relationship. No service Additional Comment: Reports history of one previous arrest on charges of drinking in public years ago Mental Status Exam - Mental Status Exam Alert and Oriented to: Time (January 09, 2019), Place, Person Cognitive Function: Fair Patient Appearance: Well Groomed Mood: Depressed, Anxious Patient Behavior: Cooperative Speech Pattern: Rambling Voice Loudness: Normal, Excessive Variation Thought Process: Goal Oriented Hallucinations: Denies Suicidal Ideation: Denies Homicidal Ideation: Denies Insight/Judgement: Poor Sleep: Poorly Appetite: Good Muscle strength/Tone: Normal Gait/Station: Normal Psychiatric Findings - Problem List ([place] 1, 2,3) (1) Substance induced mood disorder Current Visit: Yes Status: Acute (2) Substance-induced sleep disorder Current Visit: Yes Status: Acute (3) Alcohol dependence with uncomplicated withdrawal Current Visit: Yes Status: Acute (4) Sedative, hypnotic or anxiolytic abuse, uncomplicated Current Visit: Yes Status: Acute (5) Cannabis dependence Current Visit: Yes Status: Acute (6) Type 2 diabetes mellitus Current Visit: Yes Status: Chronic (7) Diabetic neuropathy Current Visit: Yes Status: Chronic Qualifiers: Diabetes mellitus type: type 2 Diabetes mellitus complication detail: diabetic polyneuropathy Qualified Code(s): E11.42 - Type 2 diabetes mellitus with diabetic polyneuropathy (8) Gastritis Current Visit: Yes Status: Chronic Qualifiers: Gastritis type: alcoholic Chronicity: chronic Gastritis bleeding: without bleeding Qualified Code(s): K29.20 - Alcoholic gastritis without bleeding (9) HTN (hypertension) Current Visit: Yes Status: Chronic Qualifiers: Hypertension type: essential hypertension Qualified Code(s): I10 - Essential (primary) hypertension (10) Dyslipidemia Current Visit: Yes Status: Chronic - Initial Treatment Plan Initial Treatment Plan: 1) Continue Melatonin 5 mg po HS prn for insomnia. 2) Start Vistaril 50 mg po Q 4hrs prn for anxiety. 3) Continue inpatient detoxification
[2019-01-18] MEDS ORDERED: hydrOXYzine PAMOATE 50 MG CAPSULE (FP) PO PRN (09:12)
[2019-01-18] MEDS: PANTOPRAZOLE 40 MG TABLET (FP) PO SCH (10:12)
[2019-01-18] MEDS: LISINOPRIL 20 MG TABLET (FP) PO SCH (10:12)
[2019-01-18] MEDS: PRENATAL VITAMINS W/ FOLIC ACID TABLET (FP) PO SCH (10:12)
[2019-01-18 10:21] LABS: HEMATOCRIT 34.6 % (35.4-49); HEMOGLOBIN 11.5 GM/dL (11.7-16.9); MCH 29.6 pg (25.7-33.7); MCHC 33.3 g/dl (32.0-35.9); MEAN CELL VOLUME 89.1 fl (80-96); MEAN PLT VOLUME 8.3 fl (7.5-11.1); PLATELET COUNT 283 K/MM3 (134-434); RBC 3.88 M/mm3 (4.00-5.60); RDW 14.9 % (11.9-15.9); WHITE BLOOD COUNT 7.7 K/mm3 (4.0-10.0)
[2019-01-18 10:26] LABS: ALBUMIN 3.1 g/dl (3.4-5.0); BILIRUBIN,TOTAL 0.4 mg/dL (0.2-1); BLOOD UREA NITROGEN 9.6 mg/dL (7-18); CALCIUM 8.4 mg/dL (8.5-10.1); POTASSIUM 4.1 mmol/L (3.5-5.1); TOT PROT 6.7 g/dl (6.4-8.2)
[2019-01-18] MEDS: MENTHOL/PHENOL 1 EACH UD MM PRN ×2 (11:33→22:59)
--- NOTE | 2019-01-18 14:09 | PN ---
S CIWA - CIWA Score Nausea/Vomitin-Mild Nausea/No Vomiting Muscle Tremors: 3 Anxiety: 3 Agitation: 2 Paroxysmal Sweats: 1-Minimal Palms Moist Orientation: 0-Oriented Tacttile Disturbances: 1-Very Mild Itch/Numbness Auditory Disturbances: 0-None Visual Disturbances: 1-Very Mild Sensitivity Headache: 1-Very Mild CIWA-Ar Total Score: 13 S Progress Note (SOAP) Subjective: 58 years old male 2nd patient [facility] admission was admitted on 01/17/19for alcohol and benzo withdrawal sx management doing weel with libirum detox regimen ambulating on hallway social with peers Objective: 01/18/19 14:10 Vital Signs Temperature 97.2 F L 01/18/19 09:54 Pulse Rate 120 H 01/18/19 09:54 Respiratory Rate 18 01/18/19 09:54 Blood Pressure 144/75 01/18/19 09:54 O2 Sat by Pulse Oximetry (%) Laboratory Last Values WBC 7.7 K/mm3 (4.0-10.0) 01/18/19 08:00 RBC 3.88 M/mm3 (4.00-5.60) L 01/18/19 08:00 Hgb 11.5 GM/dL (11.7-16.9) L 01/18/19 08:00 Hct 34.6 % (35.4-49) L 01/18/19 08:00 MCV 89.1 fl (80-96) 01/18/19 08:00 MCH 29.6 pg (25.7-33.7) 01/18/19 08:00 MCHC 33.3 g/dl (32.0-35.9) 01/18/19 08:00 RDW 14.9 % (11.9-15.9) 01/18/19 08:00 Plt Count 283 K/MM3 (134-434) 01/18/19 08:00 MPV 8.3 fl (7.5-11.1) 01/18/19 08:00 Sodium 137 mmol/L (136-145) 01/18/19 08:00 Potassium 4.1 mmol/L (3.5-5.1) 01/18/19 08:00 Chloride 101 mmol/L (98-107) 01/18/19 08:00 Carbon Dioxide 29 mmol/L (21-32) 01/18/19 08:00 Anion Gap 7 MMOL/L (8-16) L 01/18/19 08:00 BUN 9.6 mg/dL (7-18) 01/18/19 08:00 Creatinine 1.0 mg/dL (0.55-1.3) 01/18/19 08:00 Est GFR (CKD-EPI)AfAm 95.73 01/18/19 08:00 Est GFR (CKD-EPI)NonAf 82.60 01/18/19 08:00 POC Glucometer 225 UNITS (80-120) 01/18/19 11:21 Random Glucose 245 mg/dL (74-106) H 01/18/19 08:00 Calcium 8.4 mg/dL (8.5-10.1) L 01/18/19 08:00 Total Bilirubin 0.4 mg/dL (0.2-1) 01/18/19 08:00 AST 23 U/L (15-37) 01/18/19 08:00 ALT 34 U/L (13-61) 01/18/19 08:00 Alkaline Phosphatase 153 U/L (45-117) H 01/18/19 08:00 Total Protein 6.7 g/dl (6.4-8.2) 01/18/19 08:00 Albumin 3.1 g/dl (3.4-5.0) L 01/18/19 08:00 RPR Titer Nonreactive (NONREACTIVE) 01/18/19 08:00 lab noted Assessment: 01/18/19 10:21 alcohol and benzo withdrawal sx Plan: continue libirum detox regimen
[2019-01-18] MEDS ORDERED: cloNIDine HCL 0.1 MG TABLET PO PRN (14:13)
[2019-01-18] MEDS: ATORVASTATIN CA 40 MG TABLET (FP) PO SCH (22:57)
[2019-01-18] MEDS: THIAMINE HCL 100 MG TABLET (FP) PO SCH (22:57)
[2019-01-18] MEDS: LATANOPROST 0.005% OPHTH SOLN 2.5ML BOTTLE OU SCH (22:59)
[2019-01-19] MEDS: chlordiazePOXIDE HCL 25 MG CAPSULE PO SCH ×4 (05:32→22:35)
[2019-01-19] MEDS: GABAPENTIN 300 MG CAPSULE (FP) PO SCH ×3 (05:36→22:36)
[2019-01-19] MEDS: glipiZIDE 5 MG TABLET (FP) PO SCH (07:44)
[2019-01-19] MEDS: INSULIN SLIDING SCALE (NOVOLOG) 1 VIAL SQ SCH ×4 (07:44→22:35)
[2019-01-19] MEDS: metFORMIN HCL 500 MG TABLET (FP) PO SCH ×2 (07:44→16:47)
[2019-01-19] MEDS: PANTOPRAZOLE 40 MG TABLET (FP) PO SCH (10:17)
[2019-01-19] MEDS: LISINOPRIL 20 MG TABLET (FP) PO SCH (10:17)
[2019-01-19] MEDS: GEMFIBROZIL 600 MG TABLET (FP) PO SCH ×2 (10:17→22:36)
[2019-01-19] MEDS: PRENATAL VITAMINS W/ FOLIC ACID TABLET (FP) PO SCH (10:17)
--- NOTE | 2019-01-19 10:26 | PN ---
[facility] CIWA - CIWA Score Nausea/Vomitin-Mild Nausea/No Vomiting Muscle Tremors: 3 Anxiety: 3 Agitation: 2 Paroxysmal Sweats: 1-Minimal Palms Moist Orientation: 1-Uncertain about Date (date of the week) Tacttile Disturbances: 0-None Auditory Disturbances: 0-None Visual Disturbances: 0-None Headache: 0-None Present CIWA-Ar Total Score: 11 S Progress Note (SOAP) Subjective: doing well with librium detox regimen worry about family and friends in [place] anxious restlessness Objective: 01/19/19 10:27 Vital Signs Temperature 98.5 F 01/19/19 09:33 Pulse Rate 107 H 01/19/19 09:33 Respiratory Rate 18 01/19/19 09:33 Blood Pressure 128/79 01/19/19 09:33 O2 Sat by Pulse Oximetry (%) Laboratory Last Values WBC 7.7 K/mm3 (4.0-10.0) 01/18/19 08:00 RBC 3.88 M/mm3 (4.00-5.60) L 01/18/19 08:00 Hgb 11.5 GM/dL (11.7-16.9) L 01/18/19 08:00 Hct 34.6 % (35.4-49) L 01/18/19 08:00 MCV 89.1 fl (80-96) 01/18/19 08:00 MCH 29.6 pg (25.7-33.7) 01/18/19 08:00 MCHC 33.3 g/dl (32.0-35.9) 01/18/19 08:00 RDW 14.9 % (11.9-15.9) 01/18/19 08:00 Plt Count 283 K/MM3 (134-434) 01/18/19 08:00 MPV 8.3 fl (7.5-11.1) 01/18/19 08:00 Sodium 137 mmol/L (136-145) 01/18/19 08:00 Potassium 4.1 mmol/L (3.5-5.1) 01/18/19 08:00 Chloride 101 mmol/L (98-107) 01/18/19 08:00 Carbon Dioxide 29 mmol/L (21-32) 01/18/19 08:00 Anion Gap 7 MMOL/L (8-16) L 01/18/19 08:00 BUN 9.6 mg/dL (7-18) 01/18/19 08:00 Creatinine 1.0 mg/dL (0.55-1.3) 01/18/19 08:00 Est GFR (CKD-EPI)AfAm 95.73 01/18/19 08:00 Est GFR (CKD-EPI)NonAf 82.60 01/18/19 08:00 POC Glucometer 297 UNITS (80-120) 01/19/19 05:35 Random Glucose 245 mg/dL (74-106) H 01/18/19 08:00 Calcium 8.4 mg/dL (8.5-10.1) L 01/18/19 08:00 Total Bilirubin 0.4 mg/dL (0.2-1) 01/18/19 08:00 AST 23 U/L (15-37) 01/18/19 08:00 ALT 34 U/L (13-61) 01/18/19 08:00 Alkaline Phosphatase 153 U/L (45-117) H 01/18/19 08:00 Total Protein 6.7 g/dl (6.4-8.2) 01/18/19 08:00 Albumin 3.1 g/dl (3.4-5.0) L 01/18/19 08:00 RPR Titer Nonreactive (NONREACTIVE) 01/18/19 08:00 lab noted 01/19/19 10:27 cardiac tychycardia regular rhythm Assessment: 01/19/19 10:29 alcohol and benzo withdrawal sx Plan: continue librium detox
[2019-01-19] MEDS: THIAMINE HCL 100 MG TABLET (FP) PO SCH (22:35)
[2019-01-19] MEDS: ATORVASTATIN CA 40 MG TABLET (FP) PO SCH (22:36)
[2019-01-19] MEDS: LATANOPROST 0.005% OPHTH SOLN 2.5ML BOTTLE OU SCH (22:36)
[2019-01-19] MEDS: traZODone HCL 100 MG TABLET (FP) PO PRN (22:40)
[2019-01-20] MEDS ORDERED: chlordiazePOXIDE HCL 10 MG CAPSULE PO PRN
[2019-01-20] MEDS: chlordiazePOXIDE HCL 10 MG CAPSULE PO SCH ×4 (06:20→22:23)
[2019-01-20] MEDS: glipiZIDE 5 MG TABLET (FP) PO SCH (06:20)
[2019-01-20] MEDS: metFORMIN HCL 500 MG TABLET (FP) PO SCH ×2 (06:21→16:58)
[2019-01-20] MEDS: GABAPENTIN 300 MG CAPSULE (FP) PO SCH ×3 (06:21→22:23)
[2019-01-20] MEDS: INSULIN SLIDING SCALE (NOVOLOG) 1 VIAL SQ SCH ×4 (06:59→22:27)
--- NOTE | 2019-01-20 10:13 | PN ---
[facility] CIWA - CIWA Score Nausea/Vomitin-No Nausea/No Vomiting Muscle Tremors: 2 Anxiety: 2 Agitation: 3 Paroxysmal Sweats: 1-Minimal Palms Moist Orientation: 0-Oriented Tacttile Disturbances: 1-Very Mild Itch/Numbness Auditory Disturbances: 0-None Visual Disturbances: 0-None Headache: 0-None Present CIWA-Ar Total Score: 9 BHS Progress Note (SOAP) Subjective: doing well with librium detox regimen sleep better at night well-rested feeling better less tremor mild anxiety Objective: 01/20/19 10:12 Vital Signs Temperature 96.3 F L 01/20/19 09:54 Pulse Rate 105 H 01/20/19 09:54 Respiratory Rate 18 01/20/19 09:54 Blood Pressure 117/71 01/20/19 09:54 O2 Sat by Pulse Oximetry (%) Laboratory Last Values WBC 7.7 K/mm3 (4.0-10.0) 01/18/19 08:00 RBC 3.88 M/mm3 (4.00-5.60) L 01/18/19 08:00 Hgb 11.5 GM/dL (11.7-16.9) L 01/18/19 08:00 Hct 34.6 % (35.4-49) L 01/18/19 08:00 MCV 89.1 fl (80-96) 01/18/19 08:00 MCH 29.6 pg (25.7-33.7) 01/18/19 08:00 MCHC 33.3 g/dl (32.0-35.9) 01/18/19 08:00 RDW 14.9 % (11.9-15.9) 01/18/19 08:00 Plt Count 283 K/MM3 (134-434) 01/18/19 08:00 MPV 8.3 fl (7.5-11.1) 01/18/19 08:00 Sodium 137 mmol/L (136-145) 01/18/19 08:00 Potassium 4.1 mmol/L (3.5-5.1) 01/18/19 08:00 Chloride 101 mmol/L (98-107) 01/18/19 08:00 Carbon Dioxide 29 mmol/L (21-32) 01/18/19 08:00 Anion Gap 7 MMOL/L (8-16) L 01/18/19 08:00 BUN 9.6 mg/dL (7-18) 01/18/19 08:00 Creatinine 1.0 mg/dL (0.55-1.3) 01/18/19 08:00 Est GFR (CKD-EPI)AfAm 95.73 01/18/19 08:00 Est GFR (CKD-EPI)NonAf 82.60 01/18/19 08:00 POC Glucometer 270 UNITS (80-120) 01/20/19 06:20 Random Glucose 245 mg/dL (74-106) H 01/18/19 08:00 Calcium 8.4 mg/dL (8.5-10.1) L 01/18/19 08:00 Total Bilirubin 0.4 mg/dL (0.2-1) 01/18/19 08:00 AST 23 U/L (15-37) 01/18/19 08:00 ALT 34 U/L (13-61) 01/18/19 08:00 Alkaline Phosphatase 153 U/L (45-117) H 01/18/19 08:00 Total Protein 6.7 g/dl (6.4-8.2) 01/18/19 08:00 Albumin 3.1 g/dl (3.4-5.0) L 01/18/19 08:00 RPR Titer Nonreactive (NONREACTIVE) 01/18/19 08:00 lab noted 01/20/19 10:12 chronic sinus tachycaria patient is following up with his grape crusher / endocranologist / primary care provider 01/20/19 10:13 Assessment: 01/20/19 10:14 alcohol and benzo withdrawal sx Plan: continue librium detox regimen
[2019-01-20] MEDS: LISINOPRIL 20 MG TABLET (FP) PO SCH (10:24)
[2019-01-20] MEDS: PANTOPRAZOLE 40 MG TABLET (FP) PO SCH (10:24)
[2019-01-20] MEDS: PRENATAL VITAMINS W/ FOLIC ACID TABLET (FP) PO SCH (10:24)
[2019-01-20] MEDS: GEMFIBROZIL 600 MG TABLET (FP) PO SCH ×2 (10:24→16:58)
[2019-01-20] MEDS: THIAMINE HCL 100 MG TABLET (FP) PO SCH (22:23)
[2019-01-20] MEDS: ATORVASTATIN CA 40 MG TABLET (FP) PO SCH (22:23)
[2019-01-20] MEDS: MENTHOL/PHENOL 1 EACH UD MM PRN (22:24)
[2019-01-20] MEDS: traZODone HCL 100 MG TABLET (FP) PO PRN (22:25)
[2019-01-20] MEDS: LATANOPROST 0.005% OPHTH SOLN 2.5ML BOTTLE OU SCH (22:25)
[2019-01-21] MEDS: chlordiazePOXIDE HCL 10 MG CAPSULE PO SCH ×2 (06:25→17:15)
[2019-01-21] MEDS: metFORMIN HCL 500 MG TABLET (FP) PO SCH ×2 (06:26→17:15)
[2019-01-21] MEDS: glipiZIDE 5 MG TABLET (FP) PO SCH (06:26)
[2019-01-21] MEDS: GABAPENTIN 300 MG CAPSULE (FP) PO SCH ×3 (06:27→22:16)
[2019-01-21] MEDS: MAG HYDROX/AL HYDROX/SIMETH 30 ML UNIT-DOSE CUP PO PRN (06:31)
[2019-01-21] MEDS: GEMFIBROZIL 600 MG TABLET (FP) PO SCH ×2 (07:52→17:18)
[2019-01-21] MEDS: INSULIN SLIDING SCALE (NOVOLOG) 1 VIAL SQ SCH ×4 (08:00→22:18)
[2019-01-21] MEDS: PANTOPRAZOLE 40 MG TABLET (FP) PO SCH (10:06)
[2019-01-21] MEDS: PRENATAL VITAMINS W/ FOLIC ACID TABLET (FP) PO SCH (10:06)
[2019-01-21] MEDS: LISINOPRIL 20 MG TABLET (FP) PO SCH (10:06)
--- NOTE | 2019-01-21 10:47 | PN ---
S CIWA - CIWA Score Nausea/Vomitin-No Nausea/No Vomiting Muscle Tremors: 2 Anxiety: 2 Agitation: 2 Paroxysmal Sweats: No Perspiration Orientation: 0-Oriented Tacttile Disturbances: 0-None Auditory Disturbances: 0-None Visual Disturbances: 0-None Headache: 0-None Present CIWA-Ar Total Score: 6 BHS Progress Note (SOAP) Subjective: doing well with librium detox regimen history of hypertension diabetes II and glaucoma low range of bp x 2 days reduce lisinopril to 10 mg po daily denies headache denies pain behind periobital no visual change glucose controlled through bgm with insulin coverage Objective: 01/21/19 10:52 Vital Signs Temperature 97.0 F L 01/21/19 09:16 Pulse Rate 97 H 01/21/19 09:16 Respiratory Rate 18 01/21/19 09:16 Blood Pressure 99/56 L 01/21/19 09:16 O2 Sat by Pulse Oximetry (%) Laboratory Last Values WBC 7.7 K/mm3 (4.0-10.0) 01/18/19 08:00 RBC 3.88 M/mm3 (4.00-5.60) L 01/18/19 08:00 Hgb 11.5 GM/dL (11.7-16.9) L 01/18/19 08:00 Hct 34.6 % (35.4-49) L 01/18/19 08:00 MCV 89.1 fl (80-96) 01/18/19 08:00 MCH 29.6 pg (25.7-33.7) 01/18/19 08:00 MCHC 33.3 g/dl (32.0-35.9) 01/18/19 08:00 RDW 14.9 % (11.9-15.9) 01/18/19 08:00 Plt Count 283 K/MM3 (134-434) 01/18/19 08:00 MPV 8.3 fl (7.5-11.1) 01/18/19 08:00 Sodium 137 mmol/L (136-145) 01/18/19 08:00 Potassium 4.1 mmol/L (3.5-5.1) 01/18/19 08:00 Chloride 101 mmol/L (98-107) 01/18/19 08:00 Carbon Dioxide 29 mmol/L (21-32) 01/18/19 08:00 Anion Gap 7 MMOL/L (8-16) L 01/18/19 08:00 BUN 9.6 mg/dL (7-18) 01/18/19 08:00 Creatinine 1.0 mg/dL (0.55-1.3) 01/18/19 08:00 Est GFR (CKD-EPI)AfAm 95.73 01/18/19 08:00 Est GFR (CKD-EPI)NonAf 82.60 01/18/19 08:00 POC Glucometer 261 UNITS (80-120) 01/21/19 10:09 Random Glucose 245 mg/dL (74-106) H 01/18/19 08:00 Calcium 8.4 mg/dL (8.5-10.1) L 01/18/19 08:00 Total Bilirubin 0.4 mg/dL (0.2-1) 01/18/19 08:00 AST 23 U/L (15-37) 01/18/19 08:00 ALT 34 U/L (13-61) 01/18/19 08:00 Alkaline Phosphatase 153 U/L (45-117) H 01/18/19 08:00 Total Protein 6.7 g/dl (6.4-8.2) 01/18/19 08:00 Albumin 3.1 g/dl (3.4-5.0) L 01/18/19 08:00 RPR Titer Nonreactive (NONREACTIVE) 01/18/19 08:00 lab noted Assessment: 01/21/19 10:53 alcohol and benzo withdrawal sx Plan: continue libirum detox regimen
[2019-01-21] MEDS: THIAMINE HCL 100 MG TABLET (FP) PO SCH (22:16)
[2019-01-21] MEDS: ATORVASTATIN CA 40 MG TABLET (FP) PO SCH (22:16)
[2019-01-21] MEDS: LATANOPROST 0.005% OPHTH SOLN 2.5ML BOTTLE OU SCH (22:16)
[2019-01-21] MEDS: traZODone HCL 100 MG TABLET (FP) PO PRN (22:18)
[2019-01-22] MEDS: MAG HYDROX/AL HYDROX/SIMETH 30 ML UNIT-DOSE CUP PO PRN (01:09)
[2019-01-22] MEDS: MENTHOL/PHENOL 1 EACH UD MM PRN ×2 (01:10→06:17)
[2019-01-22] MEDS ORDERED: chlordiazePOXIDE HCL 10 MG CAPSULE PO ONE (05:00)
[2019-01-22] MEDS: GABAPENTIN 300 MG CAPSULE (FP) PO SCH (06:06)
[2019-01-22] MEDS: metFORMIN HCL 500 MG TABLET (FP) PO SCH (06:06)
[2019-01-22] MEDS: glipiZIDE 5 MG TABLET (FP) PO SCH (06:07)
[2019-01-22] MEDS ORDERED: INSULIN SLIDING SCALE (NOVOLOG) 1 VIAL SQ ONE (06:13)
[2019-01-22] MEDS: INSULIN SLIDING SCALE (NOVOLOG) 1 VIAL SQ SCH ×2 (06:15→11:01)
[2019-01-22] MEDS: GEMFIBROZIL 600 MG TABLET (FP) PO SCH (07:03)
[2019-01-22 09:15] VITALS: BP 86/62; PULSE 110; TEMP 96.1
[2019-01-22] MEDS ORDERED: LISINOPRIL 10 MG TABLET (FP) PO SCH (10:00)
[2019-01-22] MEDS: PRENATAL VITAMINS W/ FOLIC ACID TABLET (FP) PO SCH (10:54)
[2019-01-22] MEDS: PANTOPRAZOLE 40 MG TABLET (FP) PO SCH (10:54)
--- NOTE | 2019-01-22 10:59 | DS ---
[facility] Detox Discharge Summary Admission Date: 01/17/19 Discharge Date: 01/22/19 - History Present History: Alcohol Dependence, Sedative Dependence Additional Comments: 58 years old male admitted on 01/17/19 for alcohol and benzo withdrawal sx management did well with librium detox regimen no compliation through out the detox stay seen by psychiatrist no extra ordinary medical intervention patient is alert oriented x 3 denies dizziness no shortness of breath speech clearly and coherently - Physical Exam Results Vital Signs: Vital Signs Temperature 96.1 F L 01/22/19 09:14 Pulse Rate 110 H 01/22/19 09:14 Respiratory Rate 18 01/22/19 09:14 Blood Pressure 86/62 L 01/22/19 09:14 O2 Sat by Pulse Oximetry (%) Pertinent Admission Physical Exam Findings: alcohol withdrawal sx Laboratory Last Values WBC 7.7 K/mm3 (4.0-10.0) 01/18/19 08:00 RBC 3.88 M/mm3 (4.00-5.60) L 01/18/19 08:00 Hgb 11.5 GM/dL (11.7-16.9) L 01/18/19 08:00 Hct 34.6 % (35.4-49) L 01/18/19 08:00 MCV 89.1 fl (80-96) 01/18/19 08:00 MCH 29.6 pg (25.7-33.7) 01/18/19 08:00 MCHC 33.3 g/dl (32.0-35.9) 01/18/19 08:00 RDW 14.9 % (11.9-15.9) 01/18/19 08:00 Plt Count 283 K/MM3 (134-434) 01/18/19 08:00 MPV 8.3 fl (7.5-11.1) 01/18/19 08:00 Sodium 137 mmol/L (136-145) 01/18/19 08:00 Potassium 4.1 mmol/L (3.5-5.1) 01/18/19 08:00 Chloride 101 mmol/L (98-107) 01/18/19 08:00 Carbon Dioxide 29 mmol/L (21-32) 01/18/19 08:00 Anion Gap 7 MMOL/L (8-16) L 01/18/19 08:00 BUN 9.6 mg/dL (7-18) 01/18/19 08:00 Creatinine 1.0 mg/dL (0.55-1.3) 01/18/19 08:00 Est GFR (CKD-EPI)AfAm 95.73 01/18/19 08:00 Est GFR (CKD-EPI)NonAf 82.60 01/18/19 08:00 POC Glucometer 261 UNITS (80-120) 01/22/19 06:05 Random Glucose 245 mg/dL (74-106) H 01/18/19 08:00 Calcium 8.4 mg/dL (8.5-10.1) L 01/18/19 08:00 Total Bilirubin 0.4 mg/dL (0.2-1) 01/18/19 08:00 AST 23 U/L (15-37) 01/18/19 08:00 ALT 34 U/L (13-61) 01/18/19 08:00 Alkaline Phosphatase 153 U/L (45-117) H 01/18/19 08:00 Total Protein 6.7 g/dl (6.4-8.2) 01/18/19 08:00 Albumin 3.1 g/dl (3.4-5.0) L 01/18/19 08:00 RPR Titer Nonreactive (NONREACTIVE) 01/18/19 08:00 lab noted discuss weight loss and glucose control - Treatment Hospital Course: Detox Protocol Followed, Detoxed Safely, Responded well, Discharged Condition Good, Rehab Referral Accepted Patient has Accepted [facility] - Medication Discharge Medications: Ambulatory Orders Omeprazole 20 mg PO DAILY 02/15/18 Atorvastatin Ca [Lipitor] 40 mg PO HS #30 tablet 02/19/18 Lisinopril 20 mg PO DAILY #30 tablet 02/19/18 Fluoxetine HCl [Prozac -] 20 mg PO DAILY 01/17/19 Gabapentin [Neurontin] 600 mg PO TID 01/17/19 Gemfibrozil [Lopid -] 600 mg PO BID 01/17/19 Glipizide [Glucotrol -] 5 mg PO DAILY 01/17/19 Insulin Aspart [Novolog Flexpen] 0 unit SQ ACHS 01/17/19 Metformin HCl [Glucophage] 1,000 mg PO BID 01/17/19 Sitagliptin Phosphate [Januvia -] 25 mg PO DAILY@0700 01/17/19 Travoprost [Travatan Z] 1 unit OU HS 01/17/19 traZODone HCL [Trazodone HCl] 100 mg PO HS 01/17/19 - Diagnosis (1) Alcohol dependence with uncomplicated withdrawal Current Visit: Yes Status: Acute (2) Sedative, hypnotic or anxiolytic abuse, uncomplicated Current Visit: Yes Status: Acute (3) Substance induced mood disorder Current Visit: Yes Status: Suspected (4) HTN (hypertension) Current Visit: Yes Status: Chronic Qualifiers: Hypertension type: essential hypertension Qualified Code(s): I10 - Essential (primary) hypertension (5) Type 2 diabetes mellitus Current Visit: Yes Status: Chronic Qualifiers: Diabetes mellitus terminologist insulin use: without terminologist use Diabetes mellitus complication status: without complication Qualified Code(s): E11.9 - Type 2 diabetes mellitus without complications - AMA Did Patient Leave Against Medical Advice: No
== END 2019-01-22 12:07 | disposition home or self-care (01) | DRG 775 ==
LOC: YASAS 09:33 → Y3N 15:41
PROVIDERS: ADMIT Surgery; ATTEND Surgery
PROC: HZ2ZZZZ Detoxification Services for Substance Abuse Treatment (ICD-10-PCS; principal; 2019-01-17)
DX: F10.230 Alcohol dependence with withdrawal, uncomplicated (principal); F13.230 Sedative, hypnotic or anxiolytic dependence with withdrawal, uncomplicated; F12.20 Cannabis dependence, uncomplicated; F19.24 Other psychoactive substance dependence with psychoactive substance-induced mood disorder; F19.282 Other psychoactive substance dependence with psychoactive substance-induced sleep disorder; I10 Essential (primary) hypertension; E11.42 Type 2 diabetes mellitus with diabetic polyneuropathy; R00.0 Tachycardia, unspecified; E78.5 Hyperlipidemia, unspecified; K29.20 Alcoholic gastritis without bleeding; Z79.4 Long term (current) use of insulin; Z79.84 Long term (current) use of oral hypoglycemic drugs; Z91.5 Personal history of self-harm
CPT/HCPCS: 36415; 80053; 82962; 85027; 86593; J0735

== ENCOUNTER 2020-07-05 09:17 | Inpatient (IN) | payer OTHER ==
[2020-07-05 10:13] VITALS: BMI 31.9
[2020-07-05] MEDS ORDERED: BISMUTH SUBSALICYLATE 524 MG/30 ML UD PO PRN (10:13)
[2020-07-05] MEDS ORDERED: METHOCARBAMOL 500 MG TABLET PO PRN (10:13)
[2020-07-05] MEDS ORDERED: MAG HYDROX/AL HYDROX/SIMETH 30 ML UNIT-DOSE CUP PO PRN (10:13)
[2020-07-05] MEDS ORDERED: MAGNESIUM CITRATE 300 ML BOTTLE PO PRN (10:13)
[2020-07-05] MEDS ORDERED: ACETAMINOPHEN 325 MG TABLET (FP) PO PRN ×2 (10:13)
[2020-07-05] MEDS ORDERED: ONDANSETRON *ODT* 4 MG TABLET SL PRN (10:13)
[2020-07-05] MEDS ORDERED: IBUPROFEN 400 MG TABLET (FP) PO PRN (10:13)
[2020-07-05] MEDS ORDERED: MENTHOL/PHENOL 1 EACH UD MM PRN (10:13)
[2020-07-05] MEDS ORDERED: chlordiazePOXIDE HCL 25 MG CAPSULE PO PRN (10:13)
[2020-07-05] MEDS ORDERED: MAGNESIUM HYDROX 2400MG/30ML ORAL SUSPENSION 30 ML CUP PO PRN (10:13)
[2020-07-05] MEDS ORDERED: INSULIN (NOVOLOG) ASPART 100 UNITS/ML 10ML VIAL ONE (10:52)
[2020-07-05] MEDS ORDERED: INSULIN (NOVOLOG) ASPART 100 UNITS/ML 10ML VIAL SQ ONE (10:53)
[2020-07-05] MEDS: INSULIN SLIDING SCALE (NOVOLOG) 1 VIAL SQ SCH ×2 (11:30→17:18)
[2020-07-05] MEDS: chlordiazePOXIDE HCL 25 MG CAPSULE PO SCH ×3 (11:45→22:41)
[2020-07-05] MEDS: PRENATAL VITAMINS W/ FOLIC ACID TABLET (FP) PO SCH (11:47)
[2020-07-05 12:49] LABS: POTASSIUM 3.8 mmol/L (3.5-5.1)
[2020-07-05 12:58] LABS: ALBUMIN 3.3 g/dl (3.4-5.0); CALCIUM 8.9 mg/dL (8.5-10.1)
[2020-07-05 12:59] LABS: BLOOD UREA NITROGEN 9.4 mg/dL (7-18)
[2020-07-05 13:03] LABS: BILIRUBIN,TOTAL 0.5 mg/dL (0.2-1); CREATININE 0.9 mg/dL (0.55-1.3); TOT PROT 7.7 g/dl (6.4-8.2)
[2020-07-05 13:52] LABS: HEMATOCRIT 35.8 % (35.4-49); HEMOGLOBIN 11.9 GM/dL (11.7-16.9); MCH 31.5 pg (25.7-33.7); MCHC 33.3 g/dl (32.0-35.9); MEAN CELL VOLUME 94.7 fl (80-96); MEAN PLT VOLUME 8.4 fl (7.5-11.1); PLATELET COUNT 302 K/MM3 (134-434); RBC 3.78 M/mm3 (4.00-5.60); WHITE BLOOD COUNT 12.8 K/mm3 (4.0-10.0)
[2020-07-05] MEDS ORDERED: hydrOXYzine PAMOATE 25 MG CAPSULE (FP) PO SCH (14:00)
[2020-07-05] MEDS: metFORMIN HCL 500 MG TABLET (FP) PO SCH (17:18)
[2020-07-05] MEDS: hydrOXYzine PAMOATE 50 MG CAPSULE (FP) PO PRN (17:24)
[2020-07-05] MEDS ORDERED: GEMFIBROZIL 600 MG TABLET (FP) PO SCH (22:00)
[2020-07-05] MEDS: ATORVASTATIN CA 40 MG TABLET (FP) PO SCH (22:41)
[2020-07-05] MEDS: THIAMINE HCL 100 MG TABLET (FP) PO SCH (22:41)
[2020-07-05] MEDS: traZODone HCL 100 MG TABLET (FP) PO SCH (22:41)
[2020-07-05] MEDS: MELATONIN 5 MG TABLETS PO SCH (22:41)
[2020-07-06] MEDS: chlordiazePOXIDE HCL 25 MG CAPSULE PO SCH ×4 (05:58→22:14)
[2020-07-06] MEDS: metFORMIN HCL 500 MG TABLET (FP) PO SCH ×2 (05:59→17:05)
[2020-07-06] MEDS: INSULIN SLIDING SCALE (NOVOLOG) 1 VIAL SQ SCH ×3 (06:00→17:10)
[2020-07-06] MEDS: glipiZIDE 5 MG TABLET (FP) PO SCH (08:34)
[2020-07-06] MEDS: LISINOPRIL 20 MG TABLET PO SCH (09:46)
[2020-07-06] MEDS: PRENATAL VITAMINS W/ FOLIC ACID TABLET (FP) PO SCH (10:15)
[2020-07-06] MEDS: PANTOPRAZOLE 40 MG TABLET PO SCH (10:15)
[2020-07-06] MEDS: ATORVASTATIN CA 40 MG TABLET (FP) PO SCH (22:15)
[2020-07-06] MEDS: MELATONIN 5 MG TABLETS PO SCH (22:15)
[2020-07-06] MEDS: THIAMINE HCL 100 MG TABLET (FP) PO SCH (22:15)
[2020-07-06] MEDS: traZODone HCL 100 MG TABLET (FP) PO SCH (22:15)
[2020-07-06] MEDS: hydrOXYzine PAMOATE 50 MG CAPSULE (FP) PO PRN (22:18)
[2020-07-07] MEDS: chlordiazePOXIDE HCL 25 MG CAPSULE PO SCH ×4 (05:55→22:02)
[2020-07-07] MEDS: glipiZIDE 5 MG TABLET (FP) PO SCH (05:59)
[2020-07-07] MEDS: metFORMIN HCL 500 MG TABLET (FP) PO SCH ×2 (05:59→17:16)
[2020-07-07] MEDS: INSULIN SLIDING SCALE (NOVOLOG) 1 VIAL SQ SCH ×3 (07:52→17:15)
[2020-07-07] MEDS ORDERED: COLLOIDAL OATMEAL 1 BAR EACH TP ONE (08:51)
[2020-07-07] MEDS: PANTOPRAZOLE 40 MG TABLET PO SCH (10:14)
[2020-07-07] MEDS: PRENATAL VITAMINS W/ FOLIC ACID TABLET (FP) PO SCH (10:14)
[2020-07-07] MEDS: LISINOPRIL 20 MG TABLET PO SCH (10:14)
[2020-07-07] MEDS: hydrOXYzine PAMOATE 50 MG CAPSULE (FP) PO PRN ×3 (10:18→22:01)
[2020-07-07 11:18] LABS: POTASSIUM 4.1 mmol/L (3.5-5.1)
[2020-07-07 11:25] LABS: CALCIUM 8.8 mg/dL (8.5-10.1)
[2020-07-07 11:26] LABS: ALBUMIN 2.9 g/dl (3.4-5.0); BLOOD UREA NITROGEN 10.4 mg/dL (7-18)
[2020-07-07 11:27] LABS: BASO % 0.7 % (0-2.0); EOS % 8.4 % (0-4.5); HEMOGLOBIN 11.2 GM/dL (11.7-16.9); LYMPH % 29.7 % (8-40); MCH 31.5 pg (25.7-33.7); MCHC 33.1 g/dl (32.0-35.9); MEAN CELL VOLUME 95.2 fl (80-96); MEAN PLT VOLUME 8.4 fl (7.5-11.1); NEUT % 51.2 % (42.8-82.8); PLATELET COUNT 274 K/MM3 (134-434); RBC 3.57 M/mm3 (4.00-5.60); RDW 14.2 % (11.9-15.9); WHITE BLOOD COUNT 9.1 K/mm3 (4.0-10.0)
[2020-07-07 11:29] LABS: CREATININE 0.9 mg/dL (0.55-1.3)
[2020-07-07 11:30] LABS: BILIRUBIN,TOTAL 0.4 mg/dL (0.2-1); TOT PROT 6.6 g/dl (6.4-8.2)
[2020-07-07] MEDS ORDERED: FLU VACCINE (FLULAVAL) PF 60 MCG/0.5 ML SYRINGE 2020-2021 IM ONE (12:00)
[2020-07-07] MEDS: INSULIN (LEVEMIR) 100 UNITS/ML UNITS SQ SCH (21:58)
[2020-07-07] MEDS: MELATONIN 5 MG TABLETS PO SCH (22:01)
[2020-07-07] MEDS: ATORVASTATIN CA 40 MG TABLET (FP) PO SCH (22:01)
[2020-07-07] MEDS: THIAMINE HCL 100 MG TABLET (FP) PO SCH (22:01)
[2020-07-07] MEDS: traZODone HCL 100 MG TABLET (FP) PO SCH (22:01)
[2020-07-08] MEDS ORDERED: chlordiazePOXIDE HCL 10 MG CAPSULE PO PRN
[2020-07-08] MEDS: chlordiazePOXIDE HCL 10 MG CAPSULE PO SCH ×4 (05:44→22:27)
[2020-07-08] MEDS: glipiZIDE 5 MG TABLET (FP) PO SCH (06:01)
[2020-07-08] MEDS: metFORMIN HCL 500 MG TABLET (FP) PO SCH ×2 (06:01→17:57)
[2020-07-08] MEDS: INSULIN SLIDING SCALE (NOVOLOG) 1 VIAL SQ SCH ×3 (06:07→17:57)
[2020-07-08] MEDS: PANTOPRAZOLE 40 MG TABLET PO SCH (10:11)
[2020-07-08] MEDS: LISINOPRIL 20 MG TABLET PO SCH (10:11)
[2020-07-08] MEDS: PRENATAL VITAMINS W/ FOLIC ACID TABLET (FP) PO SCH (10:12)
[2020-07-08] MEDS: hydrOXYzine PAMOATE 50 MG CAPSULE (FP) PO PRN ×3 (10:14→22:26)
[2020-07-08] MEDS: traZODone HCL 100 MG TABLET (FP) PO SCH (22:26)
[2020-07-08] MEDS: THIAMINE HCL 100 MG TABLET (FP) PO SCH (22:26)
[2020-07-08] MEDS: MELATONIN 5 MG TABLETS PO SCH (22:27)
[2020-07-08] MEDS: INSULIN (LEVEMIR) 100 UNITS/ML UNITS SQ SCH (22:27)
[2020-07-08] MEDS: ATORVASTATIN CA 40 MG TABLET (FP) PO SCH (22:27)
[2020-07-09] MEDS: chlordiazePOXIDE HCL 10 MG CAPSULE PO SCH ×2 (06:50→17:03)
[2020-07-09] MEDS: glipiZIDE 5 MG TABLET (FP) PO SCH (06:51)
[2020-07-09] MEDS: metFORMIN HCL 500 MG TABLET (FP) PO SCH ×2 (06:51→17:02)
[2020-07-09] MEDS: INSULIN SLIDING SCALE (NOVOLOG) 1 VIAL SQ SCH ×3 (07:10→17:01)
[2020-07-09] MEDS: PANTOPRAZOLE 40 MG TABLET PO SCH (11:17)
[2020-07-09] MEDS: PRENATAL VITAMINS W/ FOLIC ACID TABLET (FP) PO SCH (11:17)
[2020-07-09] MEDS: hydrOXYzine PAMOATE 50 MG CAPSULE (FP) PO PRN ×3 (11:18→22:41)
[2020-07-09] MEDS: LISINOPRIL 20 MG TABLET PO SCH (11:19)
[2020-07-09] MEDS: ATORVASTATIN CA 40 MG TABLET (FP) PO SCH (22:36)
[2020-07-09] MEDS: traZODone HCL 100 MG TABLET (FP) PO SCH (22:36)
[2020-07-09] MEDS: INSULIN (LEVEMIR) 100 UNITS/ML UNITS SQ SCH (22:36)
[2020-07-09] MEDS: MELATONIN 5 MG TABLETS PO SCH (22:37)
[2020-07-09] MEDS: THIAMINE HCL 100 MG TABLET (FP) PO SCH (22:37)
[2020-07-10] MEDS ORDERED: chlordiazePOXIDE HCL 10 MG CAPSULE PO ONE (05:00)
[2020-07-10] MEDS: metFORMIN HCL 500 MG TABLET (FP) PO SCH (06:32)
[2020-07-10] MEDS: glipiZIDE 5 MG TABLET (FP) PO SCH (06:33)
[2020-07-10] MEDS: hydrOXYzine PAMOATE 50 MG CAPSULE (FP) PO PRN (06:36)
[2020-07-10] MEDS: INSULIN SLIDING SCALE (NOVOLOG) 1 VIAL SQ SCH (07:25)
[2020-07-10 09:08] VITALS: TEMP 96.9
[2020-07-10 09:56] VITALS: BP 109/79; PULSE 99
== END 2020-07-10 10:07 | disposition other institution (70) | DRG 775 ==
LOC: YASAS 09:17 → Y3N 10:32
PROVIDERS: ADMIT Allergy & Immunology; ATTEND Allergy & Immunology
PROC: HZ2ZZZZ Detoxification Services for Substance Abuse Treatment (ICD-10-PCS; principal; 2020-07-05)
DX: F10.230 Alcohol dependence with withdrawal, uncomplicated (principal); F13.20 Sedative, hypnotic or anxiolytic dependence, uncomplicated; F12.20 Cannabis dependence, uncomplicated; F19.280 Other psychoactive substance dependence with psychoactive substance-induced anxiety disorder; F19.282 Other psychoactive substance dependence with psychoactive substance-induced sleep disorder; F32.9 Major depressive disorder, single episode, unspecified; D64.9 Anemia, unspecified; E78.5 Hyperlipidemia, unspecified; E11.65 Type 2 diabetes mellitus with hyperglycemia; E11.42 Type 2 diabetes mellitus with diabetic polyneuropathy; Z79.4 Long term (current) use of insulin; I10 Essential (primary) hypertension; K29.20 Alcoholic gastritis without bleeding; K21.9 Gastro-esophageal reflux disease without esophagitis; Z56.0 Unemployment, unspecified; Z59.0 Homelessness
CPT/HCPCS: 36415; 80053; 82962; 85025; 85027; 86780; C9803; G0008; Q2036; U0003

== ENCOUNTER 2021-02-21 12:32 | Inpatient (IN) | payer OTHER ==
[2021-02-21] MEDS ORDERED: ONDANSETRON *ODT* 4 MG TABLET SL PRN (15:15)
[2021-02-21] MEDS ORDERED: MAG HYDROX/AL HYDROX/SIMETH 30 ML UNIT-DOSE CUP PO PRN (15:15)
[2021-02-21] MEDS ORDERED: ACETAMINOPHEN 325 MG TABLET (FP) PO PRN ×2 (15:15)
[2021-02-21] MEDS ORDERED: diazePAM 5 MG TABLET PO PRN (15:15)
[2021-02-21] MEDS ORDERED: BISMUTH SUBSALICYLATE 524 MG/30 ML PO PRN (15:15)
[2021-02-21] MEDS ORDERED: NICOTINE 10 MG CARTRIDGE (INHALER) IH PRN (15:15)
[2021-02-21] MEDS ORDERED: MENTHOL/PHENOL 1 EACH UD MM PRN (15:15)
[2021-02-21] MEDS ORDERED: MAGNESIUM CITRATE 300 ML BOTTLE PO PRN (15:15)
[2021-02-21] MEDS ORDERED: MAGNESIUM HYDROX 2400MG/30ML ORAL SUSPENSION 30 ML CUP PO PRN (15:15)
[2021-02-21] MEDS ORDERED: IBUPROFEN 400 MG TABLET (FP) PO PRN (15:15)
[2021-02-21] MEDS ORDERED: PERMETHRIN 5% TOPICAL CREAM 60 GM TUBE ONE ×2 (15:16→18:55)
[2021-02-21 17:36] VITALS: BMI 32.5
[2021-02-21] MEDS: PERMETHRIN 5% TOPICAL CREAM 60 GM TUBE TP SCH (19:03)
[2021-02-21] MEDS: INSULIN SLIDING SCALE (NOVOLOG) 1 VIAL SQ SCH ×2 (19:03→23:24)
[2021-02-21] MEDS: hydrOXYzine PAMOATE 25 MG CAPSULE (FP) PO SCH ×2 (19:04→23:24)
[2021-02-21] MEDS ORDERED: MELATONIN 5 MG TABLETS PO SCH (22:00)
[2021-02-21] MEDS ORDERED: LORazepam 1 MG TABLET PO PRN (23:24)
[2021-02-21] MEDS: METHOCARBAMOL 500 MG TABLET PO PRN (23:25)
[2021-02-21] MEDS: THIAMINE HCL 100 MG TABLET (FP) PO SCH (23:25)
[2021-02-21] MEDS: LORazepam 2 MG TABLET PO SCH (23:48)
[2021-02-22] MEDS: LORazepam 2 MG TABLET PO SCH ×4 (06:48→22:47)
[2021-02-22] MEDS: hydrOXYzine PAMOATE 25 MG CAPSULE (FP) PO SCH (06:48)
[2021-02-22] MEDS: INSULIN SLIDING SCALE (NOVOLOG) 1 VIAL SQ SCH ×4 (07:03→22:50)
[2021-02-22] MEDS ORDERED: INSULIN (NOVOLOG) ASPART 100 UNITS/ML 10ML VIAL ONE ×4 (07:06→22:45)
[2021-02-22] MEDS: PERMETHRIN 5% TOPICAL CREAM 60 GM TUBE TP SCH (11:28)
[2021-02-22 11:57] LABS: HEMATOCRIT 40.1 % (35.4-49); HEMOGLOBIN 13.3 GM/dL (11.7-16.9); MCH 29.8 pg (25.7-33.7); MCHC 33.2 g/dl (32.0-35.9); MEAN CELL VOLUME 89.6 fl (80-96); PLATELET COUNT 252 10^3/uL (134-434); RBC 4.48 M/mm3 (4.00-5.60); RDW 14.6 % (11.9-15.9); WHITE BLOOD COUNT 9.1 K/mm3 (4.0-10.0)
[2021-02-22 12:37] LABS: ALBUMIN 2.7 g/dl (3.4-5.0); CALCIUM 8.3 mg/dL (8.5-10.1)
[2021-02-22 12:38] LABS: BILIRUBIN,TOTAL 0.4 mg/dL (0.2-1); BLOOD UREA NITROGEN 5.7 mg/dL (7-18)
[2021-02-22 12:40] LABS: CREATININE 0.8 mg/dL (0.55-1.3)
[2021-02-22] MEDS: LIDOCAINE VISCOUS 2% ORAL/TOP 15 ML UNIT-DOSE CUP MM SCH ×3 (13:46→23:08)
[2021-02-22] MEDS: AMOXICILLIN 500 MG CAPSULE (FP) PO SCH ×2 (13:46→22:47)
[2021-02-22] MEDS ORDERED: traZODone HCL 50 MG TABLET (FP) PO SCH (22:00)
[2021-02-22] MEDS: THIAMINE HCL 100 MG TABLET (FP) PO SCH (22:47)
[2021-02-23] MEDS: INSULIN SLIDING SCALE (NOVOLOG) 1 VIAL SQ SCH ×2 (06:00→12:18)
[2021-02-23] MEDS: LORazepam 1 MG TABLET PO SCH ×2 (06:00→10:28)
[2021-02-23] MEDS: LIDOCAINE VISCOUS 2% ORAL/TOP 15 ML UNIT-DOSE CUP MM SCH (06:55)
[2021-02-23] MEDS: AMOXICILLIN 500 MG CAPSULE (FP) PO SCH (07:00)
[2021-02-23] MEDS ORDERED: INSULIN (NOVOLOG) ASPART 100 UNITS/ML 10ML VIAL ONE (08:09)
[2021-02-23 09:58] VITALS: BP 147/79; PULSE 93; TEMP 98
[2021-02-23] MEDS ORDERED: LISINOPRIL 20 MG TABLET PO SCH (10:00)
[2021-02-23] MEDS: METHOCARBAMOL 500 MG TABLET PO PRN (10:31)
[2021-02-23] MEDS ORDERED: metFORMIN HCL 500 MG TABLET (FP) PO SCH (16:30)
[2021-02-23] MEDS ORDERED: LATANOPROST 0.005% OPHTH SOLN 2.5ML BOTTLE OU SCH (22:00)
[2021-02-24] MEDS ORDERED: LORazepam 0.5 MG TABLET PO PRN
[2021-02-24] MEDS ORDERED: LORazepam 0.5 MG TABLET PO SCH (05:00)
[2021-02-24] MEDS ORDERED: glipiZIDE 5 MG TABLET (FP) PO SCH (07:00)
[2021-02-25] MEDS ORDERED: LORazepam 0.5 MG TABLET PO ONE (05:00)
== END 2021-02-23 12:21 | disposition left against medical advice (07) | DRG 770 ==
LOC: YASAS 12:32 → Y6N 17:15
PROVIDERS: ADMIT Allergy & Immunology; ATTEND Allergy & Immunology
PROC: HZ2ZZZZ Detoxification Services for Substance Abuse Treatment (ICD-10-PCS; principal; 2021-02-21)
DX: F10.230 Alcohol dependence with withdrawal, uncomplicated (principal); F13.230 Sedative, hypnotic or anxiolytic dependence with withdrawal, uncomplicated; F10.282 Alcohol dependence with alcohol-induced sleep disorder; F10.24 Alcohol dependence with alcohol-induced mood disorder; F41.8 Other specified anxiety disorders; H40.9 Unspecified glaucoma; E11.43 Type 2 diabetes mellitus with diabetic autonomic (poly)neuropathy; Z79.4 Long term (current) use of insulin; B86 Scabies; R79.89 Other specified abnormal findings of blood chemistry; Z59.00 Homelessness unspecified
CPT/HCPCS: 36415; 80053; 82140; 82962; 83036; 85027; 86780; C9803; U0003; U0005

== ENCOUNTER 2021-11-20 12:50 | Inpatient (IN) | payer OTHER ==
[2021-11-20 15:54] VITALS: BMI 29.9
[2021-11-20] MEDS ORDERED: MAGNESIUM HYDROX 2400MG/30ML ORAL SUSPENSION 30 ML CUP PO PRN (16:25)
[2021-11-20] MEDS ORDERED: ONDANSETRON *ODT* 4 MG TABLET SL PRN (16:25)
[2021-11-20] MEDS ORDERED: MAG HYDROX/AL HYDROX/SIMETH 30 ML UNIT-DOSE CUP PO PRN (16:25)
[2021-11-20] MEDS ORDERED: LOPERAMIDE HCL 2 MG CAPSULE PO PRN (16:25)
[2021-11-20] MEDS ORDERED: IBUPROFEN 600 MG TABLET (FP) PO PRN (16:25)
[2021-11-20] MEDS ORDERED: LORazepam 1 MG TABLET PO PRN (16:25)
[2021-11-20] MEDS ORDERED: MAGNESIUM CITRATE 300 ML BOTTLE PO PRN (16:25)
[2021-11-20] MEDS ORDERED: ACETAMINOPHEN 325 MG TABLET (FP) PO PRN ×2 (16:25)
[2021-11-20] MEDS ORDERED: DICYCLOMINE HCL 10 MG CAPSULE PO PRN (16:25)
[2021-11-20] MEDS ORDERED: hydrOXYzine PAMOATE 25 MG CAPSULE (FP) PO PRN (16:25)
[2021-11-20] MEDS ORDERED: BENZOCAINE/MENTHOL (CHLORASEPTIC ) LOZENGE MM PRN (16:25)
[2021-11-20] MEDS ORDERED: IBUPROFEN 400 MG TABLET (FP) PO PRN (16:25)
[2021-11-20] MEDS ORDERED: METHOCARBAMOL 500 MG TABLET PO PRN (16:25)
[2021-11-20] MEDS ORDERED: BISMUTH SUBSALICYLATE 524 MG/30 ML PO PRN (16:25)
[2021-11-20] MEDS: LORazepam 2 MG TABLET PO SCH ×2 (17:34→22:41)
[2021-11-20] MEDS: metFORMIN HCL 500 MG TABLET (FP) PO SCH (17:34)
[2021-11-20] MEDS: MELATONIN 5 MG TABLETS PO SCH (22:41)
[2021-11-20] MEDS: THIAMINE HCL 100 MG TABLET (FP) PO SCH (22:41)
[2021-11-20] MEDS: LATANOPROST 0.005% OPHTH SOLN 2.5ML BOTTLE OU SCH (22:41)
[2021-11-21] MEDS: LORazepam 2 MG TABLET PO SCH ×4 (05:21→23:20)
[2021-11-21] MEDS: glipiZIDE 5 MG TABLET (FP) PO SCH (06:33)
[2021-11-21] MEDS: metFORMIN HCL 500 MG TABLET (FP) PO SCH ×2 (06:34→19:09)
[2021-11-21] MEDS: LISINOPRIL 20 MG TABLET PO SCH (10:18)
[2021-11-21] MEDS: PRENATAL VITAMINS W/ FOLIC ACID TABLET (FP) PO SCH (10:18)
[2021-11-21 11:32] LABS: HEMATOCRIT 42.5 % (35.4-49); MCH 30.3 pg (25.7-33.7); MEAN CELL VOLUME 91.8 fl (80-96); MEAN PLT VOLUME 8.5 fl (7.5-11.1); PLATELET COUNT 160 10^3/uL (134-434); RBC 4.63 M/mm3 (4.00-5.60); RDW 16.9 % (11.9-15.9); WHITE BLOOD COUNT 7.9 K/mm3 (4.0-10.0)
[2021-11-21 11:56] LABS: ALBUMIN 3.1 g/dl (3.4-5.0)
[2021-11-21 11:58] LABS: CALCIUM 8.9 mg/dL (8.5-10.1); CREATININE 0.7 mg/dL (0.55-1.3)
[2021-11-21 11:59] LABS: BLOOD UREA NITROGEN 7.5 mg/dL (7-18); TOT PROT 7.3 g/dl (6.4-8.2)
[2021-11-21 12:04] LABS: BILIRUBIN,TOTAL 0.8 mg/dL (0.2-1)
[2021-11-21] MEDS: LATANOPROST 0.005% OPHTH SOLN 2.5ML BOTTLE OU SCH (23:19)
[2021-11-21] MEDS: MELATONIN 5 MG TABLETS PO SCH (23:20)
[2021-11-21] MEDS: THIAMINE HCL 100 MG TABLET (FP) PO SCH (23:20)
[2021-11-22] MEDS: LORazepam 1 MG TABLET PO SCH ×4 (06:10→22:20)
[2021-11-22] MEDS: metFORMIN HCL 500 MG TABLET (FP) PO SCH ×2 (06:10→18:10)
[2021-11-22] MEDS: glipiZIDE 5 MG TABLET (FP) PO SCH (07:05)
[2021-11-22] MEDS: PRENATAL VITAMINS W/ FOLIC ACID TABLET (FP) PO SCH (10:37)
[2021-11-22] MEDS: LISINOPRIL 20 MG TABLET PO SCH (10:37)
[2021-11-22] MEDS ORDERED: GABAPENTIN 100 MG CAPSULE PO ONE (19:32)
[2021-11-22] MEDS ORDERED: COLLOIDAL OATMEAL 1 BAR EACH TP PRN (21:00)
[2021-11-22] MEDS ORDERED: diphenhydrAMINE HCL 25 MG CAPSULE (FP) PO ONE (21:00)
[2021-11-22] MEDS: THIAMINE HCL 100 MG TABLET (FP) PO SCH (22:20)
[2021-11-22] MEDS: LATANOPROST 0.005% OPHTH SOLN 2.5ML BOTTLE OU SCH (22:21)
[2021-11-22] MEDS: MELATONIN 5 MG TABLETS PO SCH (22:21)
[2021-11-23] MEDS ORDERED: LORazepam 0.5 MG TABLET PO PRN
[2021-11-23] MEDS: LORazepam 0.5 MG TABLET PO SCH ×4 (06:13→22:15)
[2021-11-23] MEDS: glipiZIDE 5 MG TABLET (FP) PO SCH (06:13)
[2021-11-23] MEDS: metFORMIN HCL 500 MG TABLET (FP) PO SCH ×2 (06:13→18:03)
[2021-11-23] MEDS: LISINOPRIL 20 MG TABLET PO SCH (10:29)
[2021-11-23] MEDS: PRENATAL VITAMINS W/ FOLIC ACID TABLET (FP) PO SCH (10:29)
[2021-11-23] MEDS: GABAPENTIN 300 MG CAPSULE PO SCH ×2 (14:58→22:15)
[2021-11-23] MEDS: LATANOPROST 0.005% OPHTH SOLN 2.5ML BOTTLE OU SCH (22:14)
[2021-11-23] MEDS: MELATONIN 5 MG TABLETS PO SCH (22:15)
[2021-11-23] MEDS: THIAMINE HCL 100 MG TABLET (FP) PO SCH (22:15)
[2021-11-24] MEDS ORDERED: LORazepam 0.5 MG TABLET PO ONE (05:00)
[2021-11-24] MEDS: GABAPENTIN 300 MG CAPSULE PO SCH (06:04)
[2021-11-24] MEDS: glipiZIDE 5 MG TABLET (FP) PO SCH (06:04)
[2021-11-24] MEDS: metFORMIN HCL 500 MG TABLET (FP) PO SCH (06:04)
[2021-11-24 08:50] VITALS: BP 156/87; PULSE 117; TEMP 97.3
[2021-11-24] MEDS: LISINOPRIL 20 MG TABLET PO SCH (10:27)
[2021-11-24] MEDS: PRENATAL VITAMINS W/ FOLIC ACID TABLET (FP) PO SCH (10:27)
== END 2021-11-24 11:47 | disposition home or self-care (01) | DRG 775 ==
LOC: YASAS 12:50 → Y3N 16:23
PROVIDERS: ADMIT Allergy & Immunology; ATTEND Surgery
PROC: HZ2ZZZZ Detoxification Services for Substance Abuse Treatment (ICD-10-PCS; principal; 2021-11-20)
DX: F10.230 Alcohol dependence with withdrawal, uncomplicated (principal); F13.20 Sedative, hypnotic or anxiolytic dependence, uncomplicated; F12.20 Cannabis dependence, uncomplicated; F17.210 Nicotine dependence, cigarettes, uncomplicated; F19.282 Other psychoactive substance dependence with psychoactive substance-induced sleep disorder; F32.A Depression, unspecified; D64.9 Anemia, unspecified; I10 Essential (primary) hypertension; E78.5 Hyperlipidemia, unspecified; E11.42 Type 2 diabetes mellitus with diabetic polyneuropathy; Z79.84 Long term (current) use of oral hypoglycemic drugs; H40.9 Unspecified glaucoma; M19.90 Unspecified osteoarthritis, unspecified site; R76.11 Nonspecific reaction to tuberculin skin test without active tuberculosis
CPT/HCPCS: 36415; 71046-TC-FY; 80053; 82962; 85027; 86780; C9803-CS; U0003; U0005

== ENCOUNTER 2021-12-11 19:13 | Inpatient (IN) | payer OTHER ==
[2021-12-11 21:38] VITALS: BMI 28.3
[2021-12-11] MEDS ORDERED: MAGNESIUM HYDROX 2400MG/30ML ORAL SUSPENSION 30 ML CUP PO PRN (22:02)
[2021-12-11] MEDS ORDERED: BISMUTH SUBSALICYLATE 524 MG/30 ML PO PRN (22:02)
[2021-12-11] MEDS ORDERED: LOPERAMIDE HCL 2 MG CAPSULE PO PRN (22:02)
[2021-12-11] MEDS ORDERED: BENZOCAINE/MENTHOL (CHLORASEPTIC ) LOZENGE MM PRN (22:02)
[2021-12-11] MEDS ORDERED: P-EPHED 60MG/TRIPROLIDI 2.5MG TABLET PO PRN (22:02)
[2021-12-11] MEDS ORDERED: DICYCLOMINE HCL 10 MG CAPSULE PO PRN (22:02)
[2021-12-11] MEDS ORDERED: ACETAMINOPHEN 325 MG TABLET (FP) PO PRN ×2 (22:02)
[2021-12-11] MEDS ORDERED: MAG HYDROX/AL HYDROX/SIMETH 30 ML UNIT-DOSE CUP PO PRN (22:02)
[2021-12-11] MEDS ORDERED: IBUPROFEN 400 MG TABLET (FP) PO PRN (22:02)
[2021-12-11] MEDS ORDERED: guaiFENesin 200 MG/10 ML 10 ML UNIT-DOSE CUPS PO PRN (22:02)
[2021-12-11] MEDS ORDERED: IBUPROFEN 600 MG TABLET (FP) PO PRN (22:02)
[2021-12-11] MEDS ORDERED: MAGNESIUM CITRATE 300 ML BOTTLE PO PRN (22:02)
[2021-12-11] MEDS ORDERED: ONDANSETRON *ODT* 4 MG TABLET SL PRN (22:02)
[2021-12-12] MEDS ORDERED: LORazepam 1 MG TABLET PO PRN (09:41)
[2021-12-12] MEDS: PRENATAL VITAMINS W/ FOLIC ACID TABLET (FP) PO SCH (10:37)
[2021-12-12] MEDS: ASPIRIN 81 MG CHEWABLE TABLETS PO SCH (10:39)
[2021-12-12] MEDS: LISINOPRIL 20 MG TABLET PO SCH (10:39)
[2021-12-12] MEDS: LORazepam 2 MG TABLET PO SCH ×3 (10:39→22:29)
[2021-12-12] MEDS: hydrOXYzine PAMOATE 25 MG CAPSULE (FP) PO PRN (10:40)
[2021-12-12 10:47] LABS: HEMATOCRIT 44.6 % (35.4-49); MCH 31.3 pg (25.7-33.7); MCHC 33.7 g/dl (32.0-35.9); MEAN CELL VOLUME 92.9 fl (80-96); MEAN PLT VOLUME 8.7 fl (7.5-11.1); PLATELET COUNT 274 10^3/uL (134-434); RDW 16.5 % (11.9-15.9); WHITE BLOOD COUNT 8.1 K/mm3 (4.0-10.0)
[2021-12-12 11:53] LABS: ALBUMIN 3.9 g/dl (3.4-5.0)
[2021-12-12 11:54] LABS: BLOOD UREA NITROGEN 7.7 mg/dL (7-18); CALCIUM 9.3 mg/dL (8.5-10.1)
[2021-12-12 11:57] LABS: CREATININE 0.7 mg/dL (0.55-1.3)
[2021-12-12 11:58] LABS: BILIRUBIN,TOTAL 0.5 mg/dL (0.2-1); TOT PROT 8.6 g/dl (6.4-8.2)
[2021-12-12] MEDS: metFORMIN HCL 500 MG TABLET (FP) PO SCH (17:53)
[2021-12-12] MEDS: traZODone HCL 100 MG TABLET (FP) PO SCH (22:29)
[2021-12-12] MEDS: THIAMINE HCL 100 MG TABLET (FP) PO SCH (22:29)
[2021-12-12] MEDS: MELATONIN 5 MG TABLETS PO SCH (22:30)
[2021-12-12] MEDS: LATANOPROST 0.005% OPHTH SOLN 2.5ML BOTTLE OU SCH (22:30)
[2021-12-13] MEDS: hydrOXYzine PAMOATE 25 MG CAPSULE (FP) PO PRN ×3 (05:43→18:10)
[2021-12-13] MEDS: LORazepam 1 MG TABLET PO SCH ×4 (05:43→22:16)
[2021-12-13] MEDS: glipiZIDE 5 MG TABLET (FP) PO SCH (06:00)
[2021-12-13] MEDS: metFORMIN HCL 500 MG TABLET (FP) PO SCH ×2 (06:00→16:40)
[2021-12-13] MEDS: ASPIRIN 81 MG CHEWABLE TABLETS PO SCH (10:49)
[2021-12-13] MEDS: LISINOPRIL 20 MG TABLET PO SCH (10:49)
[2021-12-13] MEDS: PRENATAL VITAMINS W/ FOLIC ACID TABLET (FP) PO SCH (10:49)
[2021-12-13] MEDS: GABAPENTIN 300 MG CAPSULE PO SCH ×2 (14:09→22:16)
[2021-12-13] MEDS: traZODone HCL 100 MG TABLET (FP) PO SCH (22:16)
[2021-12-13] MEDS: THIAMINE HCL 100 MG TABLET (FP) PO SCH (22:16)
[2021-12-13] MEDS: LATANOPROST 0.005% OPHTH SOLN 2.5ML BOTTLE OU SCH (22:19)
[2021-12-13] MEDS: MELATONIN 5 MG TABLETS PO SCH (22:19)
[2021-12-14] MEDS ORDERED: LORazepam 0.5 MG TABLET PO PRN
[2021-12-14] MEDS: metFORMIN HCL 500 MG TABLET (FP) PO SCH ×2 (06:03→18:27)
[2021-12-14] MEDS: glipiZIDE 5 MG TABLET (FP) PO SCH (06:05)
[2021-12-14] MEDS: LORazepam 0.5 MG TABLET PO SCH ×4 (06:05→22:39)
[2021-12-14] MEDS: GABAPENTIN 300 MG CAPSULE PO SCH ×3 (06:05→22:39)
[2021-12-14] MEDS: METHOCARBAMOL 500 MG TABLET PO PRN (09:13)
[2021-12-14] MEDS: LISINOPRIL 20 MG TABLET PO SCH (10:11)
[2021-12-14] MEDS: ASPIRIN 81 MG CHEWABLE TABLETS PO SCH (10:12)
[2021-12-14] MEDS: PRENATAL VITAMINS W/ FOLIC ACID TABLET (FP) PO SCH (10:12)
[2021-12-14] MEDS: hydrOXYzine PAMOATE 25 MG CAPSULE (FP) PO PRN ×2 (10:14→18:35)
[2021-12-14] MEDS ORDERED: COLLOIDAL OATMEAL 1 BAR EACH TP PRN (11:37)
[2021-12-14] MEDS ORDERED: diphenhydrAMINE HCL 25 MG CAPSULE (FP) PO ONE (12:08)
[2021-12-14 17:24] VITALS: RESP 18
[2021-12-14] MEDS ORDERED: INSULIN (NOVOLOG) ASPART 100 UNITS/ML 10ML VIAL ONE (17:45)
[2021-12-14] MEDS: INSULIN SLIDING SCALE (NOVOLOG) 1 VIAL SQ SCH (18:29)
[2021-12-14] MEDS: LATANOPROST 0.005% OPHTH SOLN 2.5ML BOTTLE OU SCH (22:38)
[2021-12-14] MEDS: traZODone HCL 100 MG TABLET (FP) PO SCH (22:39)
[2021-12-14] MEDS: THIAMINE HCL 100 MG TABLET (FP) PO SCH (22:39)
[2021-12-14] MEDS: MELATONIN 5 MG TABLETS PO SCH (22:41)
[2021-12-15] MEDS ORDERED: LORazepam 0.5 MG TABLET PO ONE (05:00)
[2021-12-15] MEDS: metFORMIN HCL 500 MG TABLET (FP) PO SCH (06:40)
[2021-12-15] MEDS: glipiZIDE 5 MG TABLET (FP) PO SCH (06:40)
[2021-12-15] MEDS: GABAPENTIN 300 MG CAPSULE PO SCH (06:40)
[2021-12-15] MEDS: INSULIN SLIDING SCALE (NOVOLOG) 1 VIAL SQ SCH (07:52)
[2021-12-15] MEDS ORDERED: INSULIN (NOVOLOG) ASPART 100 UNITS/ML 10ML VIAL ONE (08:05)
[2021-12-15 09:28] VITALS: BP 147/74; PULSE 87; TEMP 97.7
[2021-12-15] MEDS: ASPIRIN 81 MG CHEWABLE TABLETS PO SCH (10:56)
[2021-12-15] MEDS: PRENATAL VITAMINS W/ FOLIC ACID TABLET (FP) PO SCH (10:56)
[2021-12-15] MEDS: LISINOPRIL 20 MG TABLET PO SCH (10:56)
[2021-12-15] MEDS: METHOCARBAMOL 500 MG TABLET PO PRN (10:56)
== END 2021-12-15 12:05 | disposition other institution (70) | DRG 775 ==
LOC: YASAS 19:13 → Y6N 23:28
PROVIDERS: ADMIT Allergy & Immunology; ATTEND Surgery
PROC: HZ2ZZZZ Detoxification Services for Substance Abuse Treatment (ICD-10-PCS; principal; 2021-12-11)
DX: F10.230 Alcohol dependence with withdrawal, uncomplicated (principal); F10.220 Alcohol dependence with intoxication, uncomplicated; F13.230 Sedative, hypnotic or anxiolytic dependence with withdrawal, uncomplicated; F12.20 Cannabis dependence, uncomplicated; F19.24 Other psychoactive substance dependence with psychoactive substance-induced mood disorder; F19.282 Other psychoactive substance dependence with psychoactive substance-induced sleep disorder; F19.280 Other psychoactive substance dependence with psychoactive substance-induced anxiety disorder; F32.A Depression, unspecified; F41.9 Anxiety disorder, unspecified; I10 Essential (primary) hypertension; E11.42 Type 2 diabetes mellitus with diabetic polyneuropathy; E78.5 Hyperlipidemia, unspecified; M19.90 Unspecified osteoarthritis, unspecified site; H40.9 Unspecified glaucoma; K21.9 Gastro-esophageal reflux disease without esophagitis; Z79.84 Long term (current) use of oral hypoglycemic drugs; Z86.11 Personal history of tuberculosis; Z56.0 Unemployment, unspecified; Z59.00 Homelessness unspecified
CPT/HCPCS: 36415; 80053; 82962; 85027; 86780; 93005; 93010; C9803-CS; U0003; U0005

== ENCOUNTER 2021-12-15 12:21 | Inpatient (IN) | payer OTHER ==
[2021-12-15] MEDS ORDERED: MAG HYDROX/AL HYDROX/SIMETH 30 ML UNIT-DOSE CUP PO PRN (13:28)
[2021-12-15] MEDS ORDERED: MAGNESIUM HYDROX 2400MG/30ML ORAL SUSPENSION 30 ML CUP PO PRN (13:28)
[2021-12-15] MEDS ORDERED: P-EPHED 60MG/TRIPROLIDI 2.5MG TABLET PO PRN (13:28)
[2021-12-15] MEDS ORDERED: guaiFENesin 200 MG/10 ML 10 ML UNIT-DOSE CUPS PO PRN (13:28)
[2021-12-15] MEDS ORDERED: LOPERAMIDE HCL 2 MG CAPSULE PO PRN (13:28)
[2021-12-15] MEDS ORDERED: IBUPROFEN 400 MG TABLET (FP) PO PRN (13:28)
[2021-12-15] MEDS ORDERED: ACETAMINOPHEN 325 MG TABLET (FP) PO PRN (13:28)
[2021-12-15] MEDS ORDERED: MAGNESIUM CITRATE 300 ML BOTTLE PO PRN (13:28)
[2021-12-15] MEDS ORDERED: BENZOCAINE/MENTHOL (CHLORASEPTIC ) LOZENGE MM PRN (13:28)
[2021-12-15] MEDS: INSULIN SLIDING SCALE (NOVOLOG) 1 VIAL SQ SCH ×3 (14:38→21:44)
[2021-12-15] MEDS: LACTULOSE 20 GM/30 ML UDC (FOR ORAL USE ONLY) PO SCH ×2 (14:55→21:41)
[2021-12-15] MEDS: GABAPENTIN 300 MG CAPSULE PO SCH ×2 (14:55→21:41)
[2021-12-15] MEDS ORDERED: INSULIN SLIDING SCALE (NOVOLOG) 1 VIAL SQ ONE (16:44)
[2021-12-15] MEDS: metFORMIN HCL 500 MG TABLET (FP) PO SCH (16:44)
[2021-12-15] MEDS: THIAMINE HCL 100 MG TABLET (FP) PO SCH (21:40)
[2021-12-15] MEDS: MELATONIN 5 MG TABLETS PO PRN (21:40)
[2021-12-15] MEDS: LATANOPROST 0.005% OPHTH SOLN 2.5ML BOTTLE OU SCH (21:41)
[2021-12-15] MEDS: hydrOXYzine PAMOATE 25 MG CAPSULE (FP) PO PRN (21:42)
[2021-12-16] MEDS: GABAPENTIN 300 MG CAPSULE PO SCH ×3 (07:01→21:37)
[2021-12-16] MEDS: metFORMIN HCL 500 MG TABLET (FP) PO SCH ×2 (07:01→17:24)
[2021-12-16] MEDS: glipiZIDE 5 MG TABLET (FP) PO SCH (07:02)
[2021-12-16] MEDS: INSULIN SLIDING SCALE (NOVOLOG) 1 VIAL SQ SCH ×4 (07:03→21:41)
[2021-12-16] MEDS: FLUoxetine HCL 10 MG CAPSULE PO SCH (10:19)
[2021-12-16] MEDS: PRENATAL VITAMINS W/ FOLIC ACID TABLET (FP) PO SCH (10:19)
[2021-12-16] MEDS: LACTULOSE 20 GM/30 ML UDC (FOR ORAL USE ONLY) PO SCH ×2 (10:19→21:37)
[2021-12-16] MEDS: LISINOPRIL 20 MG TABLET PO SCH (10:19)
[2021-12-16] MEDS: hydrOXYzine PAMOATE 25 MG CAPSULE (FP) PO PRN ×2 (10:21→17:26)
[2021-12-16] MEDS: ASPIRIN 81 MG CHEWABLE TABLETS PO SCH (11:22)
[2021-12-16] MEDS ORDERED: INSULIN SLIDING SCALE (NOVOLOG) 1 VIAL SQ ONE (11:26)
[2021-12-16] MEDS: THIAMINE HCL 100 MG TABLET (FP) PO SCH (21:37)
[2021-12-16] MEDS: MELATONIN 5 MG TABLETS PO PRN (21:37)
[2021-12-16] MEDS: LATANOPROST 0.005% OPHTH SOLN 2.5ML BOTTLE OU SCH (21:38)
[2021-12-17] MEDS: glipiZIDE 5 MG TABLET (FP) PO SCH (06:44)
[2021-12-17] MEDS: metFORMIN HCL 500 MG TABLET (FP) PO SCH ×2 (06:44→17:12)
[2021-12-17] MEDS: GABAPENTIN 300 MG CAPSULE PO SCH ×3 (06:45→21:20)
[2021-12-17] MEDS: INSULIN SLIDING SCALE (NOVOLOG) 1 VIAL SQ SCH ×4 (06:45→21:23)
[2021-12-17 08:31] VITALS: RESP 18
[2021-12-17] MEDS: FLUoxetine HCL 10 MG CAPSULE PO SCH (09:58)
[2021-12-17] MEDS: PRENATAL VITAMINS W/ FOLIC ACID TABLET (FP) PO SCH (09:58)
[2021-12-17] MEDS: LISINOPRIL 20 MG TABLET PO SCH (09:58)
[2021-12-17] MEDS: LACTULOSE 20 GM/30 ML UDC (FOR ORAL USE ONLY) PO SCH ×2 (09:58→21:20)
[2021-12-17] MEDS: ASPIRIN 81 MG CHEWABLE TABLETS PO SCH (09:58)
[2021-12-17] MEDS: hydrOXYzine PAMOATE 25 MG CAPSULE (FP) PO PRN ×2 (09:59→17:13)
[2021-12-17] MEDS ORDERED: INSULIN (NOVOLOG) ASPART 100 UNITS/ML 10ML VIAL SQ ONE (10:08)
[2021-12-17] MEDS ORDERED: INSULIN SLIDING SCALE (NOVOLOG) 1 VIAL SQ ONE ×2 (10:22→12:04)
[2021-12-17] MEDS: THIAMINE HCL 100 MG TABLET (FP) PO SCH (21:20)
[2021-12-17] MEDS: LATANOPROST 0.005% OPHTH SOLN 2.5ML BOTTLE OU SCH (21:25)
[2021-12-17] MEDS: MELATONIN 5 MG TABLETS PO PRN (21:26)
[2021-12-18] MEDS: GABAPENTIN 300 MG CAPSULE PO SCH ×3 (06:55→21:45)
[2021-12-18] MEDS: INSULIN SLIDING SCALE (NOVOLOG) 1 VIAL SQ SCH ×4 (06:55→21:47)
[2021-12-18] MEDS: metFORMIN HCL 500 MG TABLET (FP) PO SCH ×3 (06:55→16:51)
[2021-12-18] MEDS: glipiZIDE 5 MG TABLET (FP) PO SCH ×2 (06:55→10:03)
[2021-12-18] MEDS: PRENATAL VITAMINS W/ FOLIC ACID TABLET (FP) PO SCH (09:59)
[2021-12-18] MEDS: ASPIRIN 81 MG CHEWABLE TABLETS PO SCH (10:00)
[2021-12-18] MEDS: LACTULOSE 20 GM/30 ML UDC (FOR ORAL USE ONLY) PO SCH ×2 (10:01→21:45)
[2021-12-18] MEDS: LISINOPRIL 20 MG TABLET PO SCH (10:02)
[2021-12-18] MEDS: FLUoxetine HCL 10 MG CAPSULE PO SCH (10:02)
[2021-12-18] MEDS: hydrOXYzine PAMOATE 25 MG CAPSULE (FP) PO PRN ×2 (10:05→19:04)
[2021-12-18] MEDS: COLLOIDAL OATMEAL 1 BAR EACH TP PRN (10:56)
[2021-12-18] MEDS: THIAMINE HCL 100 MG TABLET (FP) PO SCH (21:46)
[2021-12-18] MEDS: LATANOPROST 0.005% OPHTH SOLN 2.5ML BOTTLE OU SCH (21:46)
[2021-12-18] MEDS: MELATONIN 5 MG TABLETS PO PRN (21:46)
[2021-12-19] MEDS: GABAPENTIN 300 MG CAPSULE PO SCH ×3 (07:12→21:16)
[2021-12-19] MEDS: metFORMIN HCL 500 MG TABLET (FP) PO SCH ×2 (07:58→16:52)
[2021-12-19] MEDS: glipiZIDE 5 MG TABLET (FP) PO SCH (07:58)
[2021-12-19] MEDS: INSULIN SLIDING SCALE (NOVOLOG) 1 VIAL SQ SCH ×4 (07:59→21:20)
[2021-12-19] MEDS ORDERED: glipiZIDE 5 MG TABLET (FP) PO ONE (09:47)
[2021-12-19] MEDS ORDERED: metFORMIN HCL 500 MG TABLET (FP) PO ONE (09:47)
[2021-12-19] MEDS: FLUoxetine HCL 10 MG CAPSULE PO SCH (10:05)
[2021-12-19] MEDS: ASPIRIN 81 MG CHEWABLE TABLETS PO SCH (10:05)
[2021-12-19] MEDS: LACTULOSE 20 GM/30 ML UDC (FOR ORAL USE ONLY) PO SCH ×2 (10:05→21:20)
[2021-12-19] MEDS: hydrOXYzine PAMOATE 25 MG CAPSULE (FP) PO PRN ×2 (10:05→16:53)
[2021-12-19] MEDS: LISINOPRIL 20 MG TABLET PO SCH (10:05)
[2021-12-19] MEDS: PRENATAL VITAMINS W/ FOLIC ACID TABLET (FP) PO SCH (10:05)
[2021-12-19] MEDS ORDERED: INSULIN SLIDING SCALE (NOVOLOG) 1 VIAL SQ ONE (16:52)
[2021-12-19] MEDS: MELATONIN 5 MG TABLETS PO PRN (21:16)
[2021-12-19] MEDS: THIAMINE HCL 100 MG TABLET (FP) PO SCH (21:16)
[2021-12-19] MEDS: LATANOPROST 0.005% OPHTH SOLN 2.5ML BOTTLE OU SCH (21:20)
[2021-12-20] MEDS: GABAPENTIN 300 MG CAPSULE PO SCH ×3 (06:15→21:52)
[2021-12-20] MEDS: glipiZIDE 5 MG TABLET (FP) PO SCH (06:15)
[2021-12-20] MEDS: metFORMIN HCL 500 MG TABLET (FP) PO SCH ×2 (06:15→17:10)
[2021-12-20] MEDS: INSULIN SLIDING SCALE (NOVOLOG) 1 VIAL SQ SCH ×4 (06:17→21:55)
[2021-12-20] MEDS: ASPIRIN 81 MG CHEWABLE TABLETS PO SCH (10:36)
[2021-12-20] MEDS: LACTULOSE 20 GM/30 ML UDC (FOR ORAL USE ONLY) PO SCH ×2 (10:36→21:52)
[2021-12-20] MEDS: PRENATAL VITAMINS W/ FOLIC ACID TABLET (FP) PO SCH (10:36)
[2021-12-20] MEDS: LISINOPRIL 20 MG TABLET PO SCH (10:36)
[2021-12-20] MEDS: hydrOXYzine PAMOATE 25 MG CAPSULE (FP) PO PRN ×2 (10:41→21:53)
[2021-12-20] MEDS: FLUoxetine HCL 10 MG CAPSULE PO SCH (11:47)
[2021-12-20] MEDS: THIAMINE HCL 100 MG TABLET (FP) PO SCH (21:52)
[2021-12-20] MEDS: MELATONIN 5 MG TABLETS PO PRN (21:53)
[2021-12-20] MEDS: LATANOPROST 0.005% OPHTH SOLN 2.5ML BOTTLE OU SCH (22:17)
[2021-12-21] MEDS: GABAPENTIN 300 MG CAPSULE PO SCH ×3 (06:17→21:59)
[2021-12-21] MEDS: glipiZIDE 5 MG TABLET (FP) PO SCH (06:18)
[2021-12-21] MEDS: metFORMIN HCL 500 MG TABLET (FP) PO SCH ×2 (06:18→17:23)
[2021-12-21] MEDS: INSULIN SLIDING SCALE (NOVOLOG) 1 VIAL SQ SCH ×4 (06:19→22:03)
[2021-12-21] MEDS: PRENATAL VITAMINS W/ FOLIC ACID TABLET (FP) PO SCH (10:41)
[2021-12-21] MEDS: LACTULOSE 20 GM/30 ML UDC (FOR ORAL USE ONLY) PO SCH ×2 (10:41→22:00)
[2021-12-21] MEDS: LISINOPRIL 20 MG TABLET PO SCH (10:41)
[2021-12-21] MEDS: ASPIRIN 81 MG CHEWABLE TABLETS PO SCH (10:41)
[2021-12-21] MEDS: FLUoxetine HCL 10 MG CAPSULE PO SCH (11:36)
[2021-12-21] MEDS ORDERED: INSULIN SLIDING SCALE (NOVOLOG) 1 VIAL SQ ONE (17:22)
[2021-12-21] MEDS: hydrOXYzine PAMOATE 25 MG CAPSULE (FP) PO PRN (17:23)
[2021-12-21] MEDS: THIAMINE HCL 100 MG TABLET (FP) PO SCH (21:59)
[2021-12-21] MEDS: MELATONIN 5 MG TABLETS PO PRN (21:59)
[2021-12-21] MEDS: ATORVASTATIN CA 40 MG TABLET (FP) PO SCH (22:00)
[2021-12-21] MEDS: FAMOTIDINE 20 MG TABLET PO SCH (22:00)
[2021-12-21] MEDS: LATANOPROST 0.005% OPHTH SOLN 2.5ML BOTTLE OU SCH (22:03)
[2021-12-22] MEDS: GABAPENTIN 300 MG CAPSULE PO SCH ×3 (06:21→21:49)
[2021-12-22] MEDS: glipiZIDE 5 MG TABLET (FP) PO SCH (06:21)
[2021-12-22] MEDS: metFORMIN HCL 500 MG TABLET (FP) PO SCH ×2 (06:21→16:40)
[2021-12-22] MEDS: INSULIN SLIDING SCALE (NOVOLOG) 1 VIAL SQ SCH ×4 (06:21→21:52)
[2021-12-22] MEDS: hydrOXYzine PAMOATE 25 MG CAPSULE (FP) PO PRN ×2 (06:22→21:50)
[2021-12-22] MEDS: ASPIRIN 81 MG CHEWABLE TABLETS PO SCH (10:34)
[2021-12-22] MEDS: LACTULOSE 20 GM/30 ML UDC (FOR ORAL USE ONLY) PO SCH ×2 (10:34→21:50)
[2021-12-22] MEDS: FLUoxetine HCL 10 MG CAPSULE PO SCH (10:34)
[2021-12-22] MEDS: PRENATAL VITAMINS W/ FOLIC ACID TABLET (FP) PO SCH (10:35)
[2021-12-22] MEDS: LISINOPRIL 20 MG TABLET PO SCH (10:35)
[2021-12-22] MEDS: FOLIC ACID 1 MG TABLET (FP) PO SCH (10:35)
[2021-12-22] MEDS: THIAMINE HCL 100 MG TABLET (FP) PO SCH (21:49)
[2021-12-22] MEDS: FAMOTIDINE 20 MG TABLET PO SCH (21:50)
[2021-12-22] MEDS: ATORVASTATIN CA 40 MG TABLET (FP) PO SCH (21:50)
[2021-12-22] MEDS: MELATONIN 5 MG TABLETS PO PRN (21:51)
[2021-12-22] MEDS: LATANOPROST 0.005% OPHTH SOLN 2.5ML BOTTLE OU SCH (21:52)
[2021-12-23] MEDS: GABAPENTIN 300 MG CAPSULE PO SCH ×3 (06:05→21:21)
[2021-12-23] MEDS: metFORMIN HCL 500 MG TABLET (FP) PO SCH ×2 (06:06→16:37)
[2021-12-23] MEDS: glipiZIDE 5 MG TABLET (FP) PO SCH (06:06)
[2021-12-23] MEDS: hydrOXYzine PAMOATE 25 MG CAPSULE (FP) PO PRN ×2 (06:07→21:22)
[2021-12-23] MEDS: INSULIN SLIDING SCALE (NOVOLOG) 1 VIAL SQ SCH ×4 (06:08→21:21)
[2021-12-23] MEDS: ASPIRIN 81 MG CHEWABLE TABLETS PO SCH (11:05)
[2021-12-23] MEDS: FLUoxetine HCL 10 MG CAPSULE PO SCH (11:05)
[2021-12-23] MEDS: PRENATAL VITAMINS W/ FOLIC ACID TABLET (FP) PO SCH (11:05)
[2021-12-23] MEDS: LACTULOSE 20 GM/30 ML UDC (FOR ORAL USE ONLY) PO SCH ×2 (11:05→21:21)
[2021-12-23] MEDS: FOLIC ACID 1 MG TABLET (FP) PO SCH (11:05)
[2021-12-23] MEDS: LISINOPRIL 20 MG TABLET PO SCH (11:05)
[2021-12-23] MEDS: COLLOIDAL OATMEAL 1 BAR EACH TP PRN (11:07)
[2021-12-23] MEDS ORDERED: INSULIN SLIDING SCALE (NOVOLOG) 1 VIAL SQ ONE (16:37)
[2021-12-23] MEDS: ATORVASTATIN CA 40 MG TABLET (FP) PO SCH (21:20)
[2021-12-23] MEDS: THIAMINE HCL 100 MG TABLET (FP) PO SCH (21:20)
[2021-12-23] MEDS: FAMOTIDINE 20 MG TABLET PO SCH (21:20)
[2021-12-23] MEDS: MELATONIN 5 MG TABLETS PO PRN (21:21)
[2021-12-23] MEDS: LATANOPROST 0.005% OPHTH SOLN 2.5ML BOTTLE OU SCH (21:22)
[2021-12-24] MEDS: GABAPENTIN 300 MG CAPSULE PO SCH ×3 (06:17→21:36)
[2021-12-24] MEDS: metFORMIN HCL 500 MG TABLET (FP) PO SCH ×2 (06:17→17:36)
[2021-12-24] MEDS: glipiZIDE 5 MG TABLET (FP) PO SCH (06:17)
[2021-12-24] MEDS: INSULIN SLIDING SCALE (NOVOLOG) 1 VIAL SQ SCH ×4 (06:18→22:02)
[2021-12-24] MEDS: LACTULOSE 20 GM/30 ML UDC (FOR ORAL USE ONLY) PO SCH ×2 (09:34→21:36)
[2021-12-24] MEDS: LISINOPRIL 20 MG TABLET PO SCH (09:35)
[2021-12-24] MEDS: FOLIC ACID 1 MG TABLET (FP) PO SCH (09:35)
[2021-12-24] MEDS: ASPIRIN 81 MG CHEWABLE TABLETS PO SCH (09:35)
[2021-12-24] MEDS: hydrOXYzine PAMOATE 25 MG CAPSULE (FP) PO PRN ×2 (09:35→21:37)
[2021-12-24] MEDS: FLUoxetine HCL 10 MG CAPSULE PO SCH (09:35)
[2021-12-24] MEDS: PRENATAL VITAMINS W/ FOLIC ACID TABLET (FP) PO SCH (09:35)
[2021-12-24] MEDS ORDERED: COLLOIDAL OATMEAL 1 BAR EACH TP PRN (11:53)
[2021-12-24] MEDS: ATORVASTATIN CA 40 MG TABLET (FP) PO SCH (21:36)
[2021-12-24] MEDS: MELATONIN 5 MG TABLETS PO PRN (21:37)
[2021-12-24] MEDS: THIAMINE HCL 100 MG TABLET (FP) PO SCH (21:37)
[2021-12-24] MEDS: FAMOTIDINE 20 MG TABLET PO SCH (21:37)
[2021-12-24] MEDS: LATANOPROST 0.005% OPHTH SOLN 2.5ML BOTTLE OU SCH (22:02)
[2021-12-25] MEDS: glipiZIDE 5 MG TABLET (FP) PO SCH (06:45)
[2021-12-25] MEDS: metFORMIN HCL 500 MG TABLET (FP) PO SCH ×2 (06:45→16:57)
[2021-12-25] MEDS: GABAPENTIN 300 MG CAPSULE PO SCH ×3 (07:37→21:46)
[2021-12-25] MEDS: INSULIN SLIDING SCALE (NOVOLOG) 1 VIAL SQ SCH ×4 (08:27→21:47)
[2021-12-25] MEDS: FLUoxetine HCL 10 MG CAPSULE PO SCH (11:19)
[2021-12-25] MEDS: FOLIC ACID 1 MG TABLET (FP) PO SCH (11:19)
[2021-12-25] MEDS: LISINOPRIL 20 MG TABLET PO SCH (11:19)
[2021-12-25] MEDS: LACTULOSE 20 GM/30 ML UDC (FOR ORAL USE ONLY) PO SCH ×2 (11:19→21:46)
[2021-12-25] MEDS: ASPIRIN 81 MG CHEWABLE TABLETS PO SCH (11:20)
[2021-12-25] MEDS: PRENATAL VITAMINS W/ FOLIC ACID TABLET (FP) PO SCH (11:20)
[2021-12-25] MEDS: hydrOXYzine PAMOATE 25 MG CAPSULE (FP) PO PRN ×2 (11:22→21:47)
[2021-12-25] MEDS ORDERED: INSULIN SLIDING SCALE (NOVOLOG) 1 VIAL SQ ONE (16:56)
[2021-12-25] MEDS: THIAMINE HCL 100 MG TABLET (FP) PO SCH (21:46)
[2021-12-25] MEDS: MELATONIN 5 MG TABLETS PO PRN (21:46)
[2021-12-25] MEDS: FAMOTIDINE 20 MG TABLET PO SCH (21:46)
[2021-12-25] MEDS: ATORVASTATIN CA 40 MG TABLET (FP) PO SCH (21:46)
[2021-12-25] MEDS: LATANOPROST 0.005% OPHTH SOLN 2.5ML BOTTLE OU SCH (23:06)
[2021-12-26] MEDS: INSULIN SLIDING SCALE (NOVOLOG) 1 VIAL SQ SCH (06:19)
[2021-12-26] MEDS: metFORMIN HCL 500 MG TABLET (FP) PO SCH (06:19)
[2021-12-26] MEDS: GABAPENTIN 300 MG CAPSULE PO SCH (06:19)
[2021-12-26] MEDS: glipiZIDE 5 MG TABLET (FP) PO SCH (06:19)
[2021-12-26 07:07] VITALS: BP 122/75; PULSE 81; TEMP 98.6
[2021-12-26] MEDS: FLUoxetine HCL 10 MG CAPSULE PO SCH (09:42)
[2021-12-26] MEDS: PRENATAL VITAMINS W/ FOLIC ACID TABLET (FP) PO SCH (09:42)
[2021-12-26] MEDS: ASPIRIN 81 MG CHEWABLE TABLETS PO SCH (09:42)
[2021-12-26] MEDS: FOLIC ACID 1 MG TABLET (FP) PO SCH (09:42)
[2021-12-26] MEDS: LISINOPRIL 20 MG TABLET PO SCH (09:42)
[2021-12-26] MEDS: LACTULOSE 20 GM/30 ML UDC (FOR ORAL USE ONLY) PO SCH (09:44)
== END 2021-12-26 09:47 | disposition home or self-care (01) | DRG 772 ==
LOC: YASAS 12:21 → Y3W 12:23
PROVIDERS: ADMIT Allergy & Immunology; ATTEND Psychiatry & Neurology Pain Medicine
PROC: HZ42ZZZ Group Counseling for Substance Abuse Treatment, Cognitive-Behavioral (ICD-10-PCS; principal; 2021-12-15)
DX: F10.20 Alcohol dependence, uncomplicated (principal); F12.20 Cannabis dependence, uncomplicated; F10.280 Alcohol dependence with alcohol-induced anxiety disorder; F32.A Depression, unspecified; E11.9 Type 2 diabetes mellitus without complications; Z79.84 Long term (current) use of oral hypoglycemic drugs; Z99.89 Dependence on other enabling machines and devices; Z59.00 Homelessness unspecified
CPT/HCPCS: 82962

== ENCOUNTER 2022-03-18 13:50 | Inpatient (IN) | payer OTHER ==
[2022-03-18 14:34] VITALS: BMI 26.6
[2022-03-18] MEDS ORDERED: IBUPROFEN 600 MG TABLET (FP) PO PRN (15:09)
[2022-03-18] MEDS ORDERED: ONDANSETRON *ODT* 4 MG TABLET SL PRN (15:09)
[2022-03-18] MEDS ORDERED: DICYCLOMINE HCL 10 MG CAPSULE PO PRN (15:09)
[2022-03-18] MEDS ORDERED: ACETAMINOPHEN 325 MG TABLET (FP) PO PRN ×2 (15:09)
[2022-03-18] MEDS ORDERED: MAGNESIUM CITRATE 300 ML BOTTLE PO PRN (15:09)
[2022-03-18] MEDS ORDERED: LOPERAMIDE HCL 2 MG CAPSULE PO PRN (15:09)
[2022-03-18] MEDS ORDERED: MAG HYDROX/AL HYDROX/SIMETH 30 ML UNIT-DOSE CUP PO PRN (15:09)
[2022-03-18] MEDS ORDERED: MAGNESIUM HYDROX 2400MG/30ML ORAL SUSPENSION 30 ML CUP PO PRN (15:09)
[2022-03-18] MEDS ORDERED: LORazepam 1 MG TABLET PO PRN (15:09)
[2022-03-18] MEDS ORDERED: NALOXONE HCL (KLOXXADO) 8 MG SPRAY NS PRN (15:09)
[2022-03-18] MEDS ORDERED: BENZOCAINE/MENTHOL (CHLORASEPTIC ) LOZENGE MM PRN (15:09)
[2022-03-18] MEDS ORDERED: IBUPROFEN 400 MG TABLET (FP) PO PRN (15:09)
[2022-03-18] MEDS ORDERED: BISMUTH SUBSALICYLATE 524 MG/30 ML PO PRN (15:09)
[2022-03-18] MEDS ORDERED: LORazepam 1 MG TABLET ONE (16:01)
[2022-03-18] MEDS: LORazepam 2 MG TABLET PO SCH ×2 (18:31→22:32)
[2022-03-18] MEDS: METHOCARBAMOL 500 MG TABLET PO PRN (18:32)
[2022-03-18] MEDS: hydrOXYzine PAMOATE 25 MG CAPSULE (FP) PO PRN (18:34)
[2022-03-18] MEDS: MELATONIN 5 MG TABLETS PO SCH (22:32)
[2022-03-18] MEDS: THIAMINE HCL 100 MG TABLET (FP) PO SCH (22:32)
[2022-03-19] MEDS: LORazepam 2 MG TABLET PO SCH ×4 (06:09→22:24)
[2022-03-19] MEDS ORDERED: metFORMIN HCL 500 MG TABLET (FP) PO ONE (09:30)
[2022-03-19] MEDS: ASPIRIN 81 MG CHEWABLE TABLETS PO SCH (10:40)
[2022-03-19] MEDS: FAMOTIDINE 20 MG TABLET PO SCH (10:40)
[2022-03-19] MEDS: LISINOPRIL 20 MG TABLET PO SCH (10:40)
[2022-03-19] MEDS: METHOCARBAMOL 500 MG TABLET PO PRN (10:40)
[2022-03-19] MEDS: hydrOXYzine PAMOATE 25 MG CAPSULE (FP) PO PRN ×2 (10:41→22:25)
[2022-03-19] MEDS: PRENATAL VITAMINS W/ FOLIC ACID TABLET (FP) PO SCH (10:41)
[2022-03-19 13:08] LABS: HEMATOCRIT 42.7 % (35.4-49); HEMOGLOBIN 14.2 GM/dL (11.7-16.9); MCHC 33.3 g/dl (32.0-35.9); MEAN CELL VOLUME 93.2 fl (80-96); MEAN PLT VOLUME 8.6 fl (7.5-11.1); PLATELET COUNT 301 10^3/uL (134-434); RBC 4.58 M/mm3 (4.00-5.60); RDW 14.9 % (11.9-15.9); WHITE BLOOD COUNT 9.2 K/mm3 (4.0-10.0)
[2022-03-19 14:06] LABS: ALBUMIN 3.5 g/dl (3.4-5.0); BLOOD UREA NITROGEN 10.6 mg/dL (7-18)
[2022-03-19 14:09] LABS: CREATININE 0.8 mg/dL (0.55-1.3)
[2022-03-19 14:10] LABS: BILIRUBIN,TOTAL 0.5 mg/dL (0.2-1)
[2022-03-19] MEDS: metFORMIN HCL 500 MG TABLET (FP) PO SCH (17:29)
[2022-03-19] MEDS: MELATONIN 5 MG TABLETS PO SCH (22:22)
[2022-03-19] MEDS: THIAMINE HCL 100 MG TABLET (FP) PO SCH (22:23)
[2022-03-19] MEDS: traZODone HCL 100 MG TABLET (FP) PO SCH (22:24)
[2022-03-19] MEDS: LATANOPROST 0.005% OPHTH SOLN 2.5ML BOTTLE OU SCH (22:26)
[2022-03-20] MEDS: metFORMIN HCL 500 MG TABLET (FP) PO SCH ×2 (06:01→18:11)
[2022-03-20] MEDS: glipiZIDE 5 MG TABLET (FP) PO SCH (06:01)
[2022-03-20] MEDS: LORazepam 1 MG TABLET PO SCH ×4 (06:02→22:01)
[2022-03-20] MEDS: FAMOTIDINE 20 MG TABLET PO SCH (11:13)
[2022-03-20] MEDS: PRENATAL VITAMINS W/ FOLIC ACID TABLET (FP) PO SCH (11:13)
[2022-03-20] MEDS: LISINOPRIL 20 MG TABLET PO SCH (11:13)
[2022-03-20] MEDS: ASPIRIN 81 MG CHEWABLE TABLETS PO SCH (11:13)
[2022-03-20] MEDS: hydrOXYzine PAMOATE 25 MG CAPSULE (FP) PO PRN (11:13)
[2022-03-20] MEDS: THIAMINE HCL 100 MG TABLET (FP) PO SCH (22:01)
[2022-03-20] MEDS: traZODone HCL 100 MG TABLET (FP) PO SCH (22:01)
[2022-03-20] MEDS: MELATONIN 5 MG TABLETS PO SCH (22:02)
[2022-03-20] MEDS: LATANOPROST 0.005% OPHTH SOLN 2.5ML BOTTLE OU SCH (22:02)
[2022-03-21] MEDS ORDERED: LORazepam 0.5 MG TABLET PO PRN
[2022-03-21] MEDS: metFORMIN HCL 500 MG TABLET (FP) PO SCH ×2 (06:37→17:40)
[2022-03-21] MEDS: LORazepam 0.5 MG TABLET PO SCH ×4 (06:37→22:41)
[2022-03-21] MEDS: glipiZIDE 5 MG TABLET (FP) PO SCH (06:37)
[2022-03-21] MEDS: FAMOTIDINE 20 MG TABLET PO SCH (10:44)
[2022-03-21] MEDS: PRENATAL VITAMINS W/ FOLIC ACID TABLET (FP) PO SCH (10:44)
[2022-03-21] MEDS: LISINOPRIL 20 MG TABLET PO SCH (10:44)
[2022-03-21] MEDS: ASPIRIN 81 MG CHEWABLE TABLETS PO SCH (10:44)
[2022-03-21] MEDS: hydrOXYzine PAMOATE 25 MG CAPSULE (FP) PO PRN ×2 (10:44→17:57)
[2022-03-21] MEDS: METHOCARBAMOL 500 MG TABLET PO PRN ×2 (10:44→22:42)
[2022-03-21] MEDS: THIAMINE HCL 100 MG TABLET (FP) PO SCH (22:41)
[2022-03-21] MEDS: traZODone HCL 100 MG TABLET (FP) PO SCH (22:41)
[2022-03-21] MEDS: MELATONIN 5 MG TABLETS PO SCH (22:41)
[2022-03-21] MEDS: LATANOPROST 0.005% OPHTH SOLN 2.5ML BOTTLE OU SCH (23:36)
[2022-03-22] MEDS ORDERED: LORazepam 0.5 MG TABLET PO ONE (05:00)
[2022-03-22] MEDS: hydrOXYzine PAMOATE 25 MG CAPSULE (FP) PO PRN (05:56)
[2022-03-22] MEDS: metFORMIN HCL 500 MG TABLET (FP) PO SCH (06:10)
[2022-03-22] MEDS: glipiZIDE 5 MG TABLET (FP) PO SCH (06:10)
[2022-03-22 06:13] VITALS: RESP 16
[2022-03-22 09:32] VITALS: BP 132/77; PULSE 119; TEMP 97.8
== END 2022-03-22 10:59 | disposition home or self-care (01) | DRG 775 ==
LOC: YASAS 13:50 → Y6N 15:52
PROVIDERS: ADMIT Allergy & Immunology; ATTEND Surgery
PROC: HZ2ZZZZ Detoxification Services for Substance Abuse Treatment (ICD-10-PCS; principal; 2022-03-18)
DX: F10.230 Alcohol dependence with withdrawal, uncomplicated (principal); F13.20 Sedative, hypnotic or anxiolytic dependence, uncomplicated; F12.20 Cannabis dependence, uncomplicated; F10.280 Alcohol dependence with alcohol-induced anxiety disorder; F19.282 Other psychoactive substance dependence with psychoactive substance-induced sleep disorder; F41.8 Other specified anxiety disorders; E78.5 Hyperlipidemia, unspecified; I10 Essential (primary) hypertension; K21.9 Gastro-esophageal reflux disease without esophagitis; E11.42 Type 2 diabetes mellitus with diabetic polyneuropathy; Z79.84 Long term (current) use of oral hypoglycemic drugs; Z99.89 Dependence on other enabling machines and devices
CPT/HCPCS: 36415; 71046-TC-FY; 80053; 82962; 85027; 86780; 87811; C9803-CS; U0003; U0005

== ENCOUNTER 2022-06-18 10:28 | Inpatient (IN) | payer OTHER ==
[2022-06-18 10:58] VITALS: BMI 28.1
[2022-06-18] MEDS ORDERED: POLYETHYLENE GLYCOL (HEALTHYLAX) 3350 17 GM PACKET PO PRN (11:18)
[2022-06-18] MEDS ORDERED: IBUPROFEN 600 MG TABLET (FP) PO PRN (11:18)
[2022-06-18] MEDS ORDERED: BENZOCAINE/MENTHOL (CHLORASEPTIC ) LOZENGE MM PRN (11:18)
[2022-06-18] MEDS ORDERED: LORazepam 2 MG TABLET PO ONE (11:18)
[2022-06-18] MEDS ORDERED: DICYCLOMINE HCL 10 MG CAPSULE PO PRN (11:18)
[2022-06-18] MEDS ORDERED: ACETAMINOPHEN 325 MG TABLET (FP) PO PRN ×2 (11:18)
[2022-06-18] MEDS ORDERED: MAGNESIUM HYDROX 2400MG/30ML ORAL SUSPENSION 30 ML CUP PO PRN (11:18)
[2022-06-18] MEDS ORDERED: ONDANSETRON *ODT* 4 MG TABLET SL PRN (11:18)
[2022-06-18] MEDS ORDERED: IBUPROFEN 400 MG TABLET (FP) PO PRN (11:18)
[2022-06-18] MEDS ORDERED: NALOXONE HCL (KLOXXADO) 8 MG SPRAY NS PRN (11:18)
[2022-06-18] MEDS ORDERED: MAG HYDROX/AL HYDROX/SIMETH 30 ML UNIT-DOSE CUP PO PRN (11:18)
[2022-06-18] MEDS ORDERED: LORazepam 1 MG TABLET PO PRN (11:18)
[2022-06-18] MEDS ORDERED: BISMUTH SUBSALICYLATE 262 MG/15 ML BTL PO PRN (11:18)
[2022-06-18] MEDS ORDERED: LOPERAMIDE HCL 2 MG CAPSULE PO PRN (11:18)
[2022-06-18] MEDS ORDERED: LORazepam 2 MG TABLET ONE (11:31)
[2022-06-18] MEDS ORDERED: PRENATAL VITAMINS W/ FOLIC ACID TABLET (FP) PO ONE (11:31)
[2022-06-18] MEDS: PRENATAL VITAMINS W/ FOLIC ACID TABLET (FP) PO SCH (11:35)
[2022-06-18] MEDS: hydrOXYzine PAMOATE 25 MG CAPSULE (FP) PO PRN (15:41)
[2022-06-18] MEDS: METHOCARBAMOL 500 MG TABLET PO PRN ×2 (15:41→22:22)
[2022-06-18] MEDS ORDERED: LISINOPRIL 20 MG TABLET PO SCH (16:00)
[2022-06-18] MEDS ORDERED: FAMOTIDINE 20 MG TABLET PO SCH (16:00)
[2022-06-18] MEDS: LORazepam 2 MG TABLET PO SCH ×2 (17:38→22:21)
[2022-06-18] MEDS: FAMOTIDINE 20 MG TABLET PO SCH (17:38)
[2022-06-18] MEDS: metFORMIN HCL 500 MG TABLET (FP) PO SCH (17:39)
[2022-06-18] MEDS: LISINOPRIL 20 MG TABLET PO SCH (17:39)
[2022-06-18] MEDS: MELATONIN 5 MG TABLETS PO SCH (22:21)
[2022-06-18] MEDS: THIAMINE HCL 100 MG TABLET (FP) PO SCH (22:21)
[2022-06-18] MEDS: LATANOPROST 0.005% OPHTH SOLN 2.5ML BOTTLE OU SCH (22:25)
[2022-06-19] MEDS: LORazepam 2 MG TABLET PO SCH ×4 (06:21→22:08)
[2022-06-19] MEDS: metFORMIN HCL 500 MG TABLET (FP) PO SCH ×2 (06:21→17:29)
[2022-06-19] MEDS: METHOCARBAMOL 500 MG TABLET PO PRN ×2 (06:23→22:08)
[2022-06-19] MEDS: glipiZIDE 5 MG TABLET (FP) PO SCH (07:15)
[2022-06-19 10:46] LABS: HEMATOCRIT 38.4 % (35.4-49); HEMOGLOBIN 12.7 GM/dL (11.7-16.9); MCH 30.6 pg (25.7-33.7); MCHC 33.1 g/dl (32.0-35.9); MEAN CELL VOLUME 92.3 fl (80-96); MEAN PLT VOLUME 7.9 fl (7.5-11.1); PLATELET COUNT 399 10^3/uL (134-434); RBC 4.16 M/mm3 (4.00-5.60); RDW 15.9 % (11.9-15.9); WHITE BLOOD COUNT 8.1 K/mm3 (4.0-10.0)
[2022-06-19] MEDS: PRENATAL VITAMINS W/ FOLIC ACID TABLET (FP) PO SCH (10:56)
[2022-06-19] MEDS: ASPIRIN 81 MG CHEWABLE TABLETS PO SCH (10:57)
[2022-06-19] MEDS: LISINOPRIL 20 MG TABLET PO SCH (10:57)
[2022-06-19] MEDS: FAMOTIDINE 20 MG TABLET PO SCH (10:57)
[2022-06-19 12:44] LABS: CALCIUM 9.5 mg/dL (8.5-10.1)
[2022-06-19 12:45] LABS: ALBUMIN 3.3 g/dl (3.4-5.0); BLOOD UREA NITROGEN 7.3 mg/dL (7-18)
[2022-06-19 12:49] LABS: CREATININE 0.7 mg/dL (0.55-1.3)
[2022-06-19 12:50] LABS: TOT PROT 7.4 g/dl (6.4-8.2)
[2022-06-19 12:51] LABS: BILIRUBIN,TOTAL 1.1 mg/dL (0.2-1)
[2022-06-19] MEDS: MELATONIN 5 MG TABLETS PO SCH (22:07)
[2022-06-19] MEDS: THIAMINE HCL 100 MG TABLET (FP) PO SCH (22:07)
[2022-06-19] MEDS: traZODone HCL 100 MG TABLET (FP) PO SCH (22:07)
[2022-06-19] MEDS: LATANOPROST 0.005% OPHTH SOLN 2.5ML BOTTLE OU SCH (22:09)
[2022-06-19] MEDS: hydrOXYzine PAMOATE 25 MG CAPSULE (FP) PO PRN (22:11)
[2022-06-20] MEDS: metFORMIN HCL 500 MG TABLET (FP) PO SCH ×2 (06:06→17:30)
[2022-06-20] MEDS: LORazepam 1 MG TABLET PO SCH ×4 (06:07→22:53)
[2022-06-20] MEDS: glipiZIDE 5 MG TABLET (FP) PO SCH (06:07)
[2022-06-20] MEDS: METHOCARBAMOL 500 MG TABLET PO PRN ×3 (06:08→22:54)
[2022-06-20] MEDS: LISINOPRIL 20 MG TABLET PO SCH (10:53)
[2022-06-20] MEDS: PRENATAL VITAMINS W/ FOLIC ACID TABLET (FP) PO SCH (10:53)
[2022-06-20] MEDS: FAMOTIDINE 20 MG TABLET PO SCH (10:54)
[2022-06-20] MEDS: ASPIRIN 81 MG CHEWABLE TABLETS PO SCH (10:54)
[2022-06-20] MEDS: hydrOXYzine PAMOATE 25 MG CAPSULE (FP) PO PRN ×2 (17:29→22:55)
[2022-06-20] MEDS: MELATONIN 5 MG TABLETS PO SCH (22:53)
[2022-06-20] MEDS: THIAMINE HCL 100 MG TABLET (FP) PO SCH (22:53)
[2022-06-20] MEDS: traZODone HCL 100 MG TABLET (FP) PO SCH (22:53)
[2022-06-20] MEDS: LATANOPROST 0.005% OPHTH SOLN 2.5ML BOTTLE OU SCH (22:55)
[2022-06-21] MEDS ORDERED: LORazepam 0.5 MG TABLET PO PRN
[2022-06-21] MEDS: LORazepam 0.5 MG TABLET PO SCH ×4 (05:47→22:08)
[2022-06-21] MEDS: METHOCARBAMOL 500 MG TABLET PO PRN ×3 (05:50→22:07)
[2022-06-21] MEDS: metFORMIN HCL 500 MG TABLET (FP) PO SCH ×2 (06:21→17:31)
[2022-06-21] MEDS: glipiZIDE 5 MG TABLET (FP) PO SCH (06:22)
[2022-06-21] MEDS: PRENATAL VITAMINS W/ FOLIC ACID TABLET (FP) PO SCH (10:38)
[2022-06-21] MEDS: FAMOTIDINE 20 MG TABLET PO SCH (10:39)
[2022-06-21] MEDS: hydrOXYzine PAMOATE 25 MG CAPSULE (FP) PO PRN (10:39)
[2022-06-21] MEDS: ASPIRIN 81 MG CHEWABLE TABLETS PO SCH (10:39)
[2022-06-21] MEDS: LISINOPRIL 20 MG TABLET PO SCH (10:39)
[2022-06-21] MEDS: traZODone HCL 100 MG TABLET (FP) PO SCH (22:07)
[2022-06-21] MEDS: THIAMINE HCL 100 MG TABLET (FP) PO SCH (22:08)
[2022-06-21] MEDS: LATANOPROST 0.005% OPHTH SOLN 2.5ML BOTTLE OU SCH (22:08)
[2022-06-21] MEDS: MELATONIN 5 MG TABLETS PO SCH (22:08)
[2022-06-22] MEDS ORDERED: LORazepam 0.5 MG TABLET PO ONE (05:00)
[2022-06-22] MEDS: metFORMIN HCL 500 MG TABLET (FP) PO SCH (06:06)
[2022-06-22] MEDS: glipiZIDE 5 MG TABLET (FP) PO SCH (06:07)
[2022-06-22] MEDS: METHOCARBAMOL 500 MG TABLET PO PRN (06:11)
[2022-06-22] MEDS: hydrOXYzine PAMOATE 25 MG CAPSULE (FP) PO PRN (06:11)
[2022-06-22 09:54] VITALS: BP 132/74; PULSE 110; RESP 18; TEMP 96.9
[2022-06-22] MEDS: LISINOPRIL 20 MG TABLET PO SCH (10:21)
[2022-06-22] MEDS: ASPIRIN 81 MG CHEWABLE TABLETS PO SCH (10:21)
[2022-06-22] MEDS: PRENATAL VITAMINS W/ FOLIC ACID TABLET (FP) PO SCH (10:21)
[2022-06-22] MEDS: FAMOTIDINE 20 MG TABLET PO SCH (10:21)
== END 2022-06-22 10:50 | disposition home or self-care (01) | DRG 775 ==
LOC: YASAS 10:28 → Y6N 12:21
PROVIDERS: ADMIT Allergy & Immunology; ATTEND Family Medicine
PROC: HZ2ZZZZ Detoxification Services for Substance Abuse Treatment (ICD-10-PCS; principal; 2022-06-18)
DX: F10.20 Alcohol dependence, uncomplicated (principal); F10.280 Alcohol dependence with alcohol-induced anxiety disorder; F10.282 Alcohol dependence with alcohol-induced sleep disorder; F41.9 Anxiety disorder, unspecified; F32.A Depression, unspecified; I10 Essential (primary) hypertension; E78.5 Hyperlipidemia, unspecified; E11.42 Type 2 diabetes mellitus with diabetic polyneuropathy; Z79.4 Long term (current) use of insulin; H40.9 Unspecified glaucoma; R76.11 Nonspecific reaction to tuberculin skin test without active tuberculosis; Z86.2 Personal history of diseases of the blood and blood-forming organs and certain disorders involving the immune mechanism; Z59.01 Sheltered homelessness
CPT/HCPCS: 36415; 80053; 82140; 82962; 85027; 86780; C9803-CS; U0003; U0005